=== PATIENT | female | born 1970 | race Caucasian/White ===

== ENCOUNTER 2017-04-14 13:06 | Inpatient (IN) | payer OTHER ==
[~2017-04-14] VITALS: Ht 165.1 cm; Wt 79.0 kg
[~2017-04-14 13:06] MED LIST: ALPR-411 PO; EFFSR75 PO; MELO7.5T5 PO; MULT-513 PO; VENL100T2 PO
[2017-04-14] MEDS ORDERED: SODIUM CHLORIDE 0.9% 1000ML 1,000 ML IV SCH (13:23)
[2017-04-14 13:39] LABS: HEMATOCRIT 43.5 % (37-47); MEAN CELL VOLUME 91.8 fL (80-100); MEAN CORPUSCULAR HEMOGLOBIN 31.6 pg (25-34); MEAN CORPUSCULAR HGB CONC 34.5 g/dl (32-36); MEAN PLATELET VOLUME 9.5 fL (7.4-10.4); PLATELET COUNT 405 K/uL (130-400); RED BLOOD COUNT 4.74 M/uL (4.2-5.4); WHITE BLOOD COUNT 15.96 K/uL (4.8-10.8)
[2017-04-14 13:46] LABS: PROTHROMBIN TIME (PATIENT) 10.4 SECONDS (9.0-12.0)
--- NOTE | 2017-04-14 14:02 | EMERGENCY ROOM VISIT NOTE ---
History Report prepared by Mc: Kia Lyon Under the Supervision of: Dr. Goran Palencia D.O. First contact with patient: 13:12 Chief Complaint: NEURO SYMPTOMS Stated Complaint: SPEECH DIFFICULTY-MS History of Present Illness The patient is a 46 year old female who presents to the Emergency Room with complaints of persistent speech difficulty starting 0800 today. She has a history of MS. She woke up at 0800 with difficulty finding her words. She normally does not have any speech problems with her MS. She does have right arm and leg weakness at baseline. She has a headache. She denies any chest pain or SOB. She was started on Provigil 2 weeks ago. She denies any other changes in medications. She is currently not on steroids. She is due for her period. She had an MRI 3 days ago with neurology. She has not received the results yet. Source of History: patient, sibling Onset: 0800 today Position: other (global) Quality: other (speech difficulty) Timing: other (persistent) Associated Symptoms: + headache, No chest pain, No SOB Review of Systems See HPI for pertinent positives & negatives. A total of 10 systems reviewed and were otherwise negative. Past Medical & Surgical Medical Problems: (1) Expressive aphasia (2) Melanoma (3) MS (multiple sclerosis) Family History No pertinent family history stated. Social History Smoking Status: Current Every Day Smoker Alcohol Use: occasionally Drug Use: cocaine Marital Status: Occupation Status: employed Current/Historical Medications Scheduled Glatiramer Acetate (Copaxone), 1 DOSE INJ UD Modafinil (Provigil), 1 TAB PO DAILY Multivitamins/Minerals (Mvi With Minerals), 1 TAB PO DAILY Venlafaxine Hcl (Effexor Extended Rel), 1 CAP PO DAILY Scheduled PRN Alprazolam (Xanax), 0.5 MG PO TID PRN Allergies Coded Allergies: No Known Allergies (Verified , 04/14/17) Physical Exam Vital Signs Date Time Temp Pulse Resp B/P (MAP) Pulse Ox O2 Delivery O2 Flow Rate FiO2 04/14/17 14:13 90 16 101/80 95 Room Air 04/14/17 14:11 98 Room Air 04/14/17 13:08 37.0 113 20 146/117 98 Room Air Physical Exam GENERAL: Patient is awake, alert, and in no acute distress. Patient is resting comfortably and showing no signs of anxiety EYES: The conjunctivae are clear. The pupils are round and reactive. EARS, NOSE, MOUTH AND THROAT: The nose is without any evidence of any deformity. Mucous membranes are moist tongue is midline NECK: The neck is nontender and supple. RESPIRATORY: Normal respiratory effort is noted there is no evidence of wheezing rhonchi or rales CARDIOVASCULAR: Regular rate and rhythm noted there no murmurs rubs or gallops normal S1 normal S2 GASTROINTESTINAL: The abdomen is soft. Bowel sounds are present in all quadrants. Abdomen is nontender MUSCULOSKELETAL/EXTREMITIES: There is no evidence of gross deformity full range of motion is noted in the hips and shoulders SKIN: There is no obvious evidence of any rash. There are no petechiae, pallor or cyanosis noted. NEUROLOGIC: Patient is awake alert and oriented x3. No facial droop was noted. Patellar reflexes are 3+ bilaterally. Tobacco Roller strength diminished in RUE compared to the left. Speech was pressure and difficult for the patient. Medical Decision & Procedures ER Provider Diagnostic Interpretation: X-ray results as stated below per interpretation by me and the radiologist. Radiology results as stated below per my review and radiologist interpretation: CHEST ONE VIEW PORTABLE HISTORY: 46 years-old Female Stroke acute strokelike symptoms COMPARISON: Chest radiograph 11/26/2015 TECHNIQUE: Portable upright AP view of the chest FINDINGS: Cardiomediastinal and hilar silhouettes are within normal limits. No pneumothorax, pleural effusion, focal airspace consolidation or overt pulmonary edema. Bones of the chest are grossly intact. IMPRESSION: No acute cardiopulmonary process. The above report was generated using voice recognition software. It may contain grammatical, syntax or spelling errors. Electronically signed by: Blanco Cruz M.D. 04/14/2017 2:45 PM Dictated Date/Time: 04/14/2017 2:44 PM HEAD WITHOUT CONTRAST (CT) CLINICAL HISTORY: 46 years-old Female with Stroke. Acute strokelike symptoms. Dysarthria with blurry vision and headache TECHNIQUE: Multiple axial CT images of the head were obtained without contrast. A dose lowering technique was utilized adhering to the principles of ALARA. CT DOSE: 537.48 mGy.cm COMPARISON: CT head 06/08/2015. FINDINGS: No acute intracranial hemorrhage, midline shift, mass, large territorial ischemia or abnormal extra-axial collection. The calvarium is intact. The paranasal sinuses, mastoid air cells, and middle ear cavities are clear. IMPRESSION: No acute intracranial abnormality. The above report was generated using voice recognition software. It may contain grammatical, syntax or spelling errors. Electronically signed by: Blanco Cruz M.D. 04/14/2017 2:09 PM Dictated Date/Time: 04/14/2017 2:07 PM Laboratory Results 04/14/17 13:19 Red Blood Count 4.74, Mean Corpuscular Volume 91.8, Mean Corpuscular Hemoglobin 31.6, Mean Corpuscular Hemoglobin Concent 34.5, Mean Platelet Volume 9.5, Neutrophils (%) (Auto) 80.0, Lymphocytes (%) (Auto) 13.3, Monocytes (%) (Auto) 5.2, Eosinophils (%) (Auto) 1.1, Basophils (%) (Auto) 0.2, Neutrophils # (Auto) 12.78, Lymphocytes # (Auto) 2.12, Monocytes # (Auto) 0.83, Eosinophils # (Auto) 0.17, Basophils # (Auto) 0.03 04/14/17 13:19 Test 04/14/17 13:19 04/14/17 14:10 White Blood Count 15.96 K/uL (4.8-10.8) Red Blood Count 4.74 M/uL (4.2-5.4) Hemoglobin 15.0 g/dL (12.0-16.0) Hematocrit 43.5 % (37-47) Mean Corpuscular Volume 91.8 fL (80-100) Mean Corpuscular Hemoglobin 31.6 pg (25-34) Mean Corpuscular Hemoglobin Concent 34.5 g/dl (32-36) Platelet Count 405 K/uL (130-400) Mean Platelet Volume 9.5 fL (7.4-10.4) Neutrophils (%) (Auto) 80.0 % Lymphocytes (%) (Auto) 13.3 % Monocytes (%) (Auto) 5.2 % Eosinophils (%) (Auto) 1.1 % Basophils (%) (Auto) 0.2 % Neutrophils # (Auto) 12.78 K/uL (1.4-6.5) Lymphocytes # (Auto) 2.12 K/uL (1.2-3.4) Monocytes # (Auto) 0.83 K/uL (0.11-0.59) Eosinophils # (Auto) 0.17 K/uL (0-0.5) Basophils # (Auto) 0.03 K/uL (0-0.2) RDW Standard Deviation 42.8 fL (36.4-46.3) RDW Coefficient of Variation 12.7 % (11.5-14.5) Immature Granulocyte % (Auto) 0.2 % Immature Granulocyte # (Auto) 0.03 K/uL (0.00-0.02) Prothrombin Time 10.4 SECONDS (9.0-12.0) Prothromb Time International Ratio 1.0 (0.9-1.1) Activated Partial Thromboplast Time 25.7 SECONDS (21.0-31.0) Partial Thromboplastin Ratio 1.0 Anion Gap 9.0 mmol/L (3-11) Est Creatinine Clear Calc Drug Dose 87.0 ml/min Estimated GFR () 95.9 Estimated GFR (Non- 82.8 BUN/Creatinine Ratio 13.8 (10-20) Calcium Level 8.9 mg/dl (8.5-10.1) Magnesium Level 1.8 mg/dl (1.8-2.4) Total Creatine Kinase 69 U/L (26-192) Creatine Kinase MB 1.1 ng/ml (0.5-3.6) Creatine Kinase MB Ratio 1.6 (0-3.0) Troponin I < 0.015 ng/ml (0-0.045) Human Chorionic Gonadotropin, Qual NEG (NEG) Bedside Glucose 88 mg/dl (70-90) Laboratory results per my review. ECG Indication: weakness Rate (beats per minute): 93 Rhythm: normal sinus Findings: no ectopy, other (no acute ST segment abnormality, diffuse T wave flattening) Comparison ECG Date: 08-Jun-2015 Change: no significant change ED Course 1320: The patient was evaluated in room A11B. A complete history and physical examination were performed. 1323: NSS 1000 ml @ 50 mls/hr IV. 1448: I discussed the patient's case with Dr. Busby, [facility] neurology. We are in agreement with the plan. 1510: Upon reevaluation, the patient is stable. I discussed results and treatment plan with her. She verbalizes agreement and understanding. The patient will be evaluated for further management and care. 1514: I discussed the [facility]'s [facility] The patient will be evaluated for further management. Medical Decision Prior records/ancillary studies reviewed and summarized above. Nursing notes reviewed. Additional history obtained from family. The patient's history was concerning for speech difficulties. Differential diagnosis: Etiologies such as metabolic, infection, hypo/hyperglycemia, electrolyte abnormalities, cardiac sources, intracerebral event, toxicologic, neurologic, as well as others were entertained. The patient is a 46-year-old female who presented to the emergency department for evaluation of difficulty speaking as well as right-sided weakness and numbness. The patient states that she's had similar episodes in the past with an MS flare. The patient was outside of the window for TPA and given her presentation I'm unsure if she would be a candidate for thrombolytics. I discussed the patient's laboratory radiographic studies with her. I also discussed her case with her primary neurologist. At this time he is recommended that we discussed the case with the admitting team and do further testing to ensure this was not an ischemic event but also do an MRI to ensure that this is not a flare of MS and then determine therapy based on these findings. The patient was reevaluated multiple times. I discussed the patient's laboratory radiographic studies with her. [facility] also [facility] evaluate the patient in emergency apartment for further management and disposition. Medication Reconcilliation Current Medication List: was personally reviewed by me Blood Pressure Screening Patient's blood pressure: Normal blood pressure Blood pressure disposition: Did not require urgent referral Consults Time Called: 1442 Consulting Physician: Izaiah Chapman neurology Returned Call: [phone] I discussed the patient's case with him. We are in agreement with the plan. Additional Consults: Time Called: 1510 Consulted Phys[facility] Returned Call: [phone] Additional Comments: I discussed the patient's case with him. The patient will be evaluated for further management. Impression Primary Impression: Weakness Additional Impressions: MS (multiple sclerosis) Headache Scribe Attestation The scribe's documentation has been prepared under my direction and personally reviewed by me in its entirety. I confirm that the note above accurately reflects all work, treatment, procedures, and medical decision making performed by me. Departure Information Dispostion Being Evaluated By Hospitalist Referrals Jass Cox M.D.(ALANNAH) (PCP) Patient Instructions My [facility] Problem Qualifiers Additional Impressions: Headache Headache type: unspecified Headache chronicity pattern: unspecified pattern Intractability: not intractable Qualified Codes: R51 - Headache
[2017-04-14 14:03] LABS: PREG INTERNAL NEGATIVE QC NEG CLEAR BACKGROUND; PREG INTERNAL POSITIVE QC POS CONTROL LINE
[2017-04-14 14:04] LABS: BLOOD UREA NITROGEN 12 mg/dl (7-18); BUN/CREATININE RATIO 13.8 (10-20); CALCIUM 8.9 mg/dl (8.5-10.1); CARBON DIOXIDE 26 mmol/L (21-32); CHLORIDE 105 mmol/L (98-107); CREATININE 0.84 mg/dl (0.60-1.20); GLUCOSE 94 mg/dl (70-99); MAGNESIUM 1.8 mg/dl (1.8-2.4); POTASSIUM 3.6 mmol/L (3.5-5.1); SODIUM 140 mmol/L (136-145)
[2017-04-14 14:09] LABS: BASO % 0.2 %; BASO ABS # 0.03 K/uL (0-0.2); CKMB/CK RATIO 1.6 (0-3.0); COMPLETE YES; EOS % 1.1 %; IG% 0.2 %; LYMPH % 13.3 %; LYMPH ABS # 2.12 K/uL (1.2-3.4); MONO % 5.2 %
--- NOTE | 2017-04-14 14:11 | DIAGNOSTIC IMAGING REPORT ---
HEAD WITHOUT CONTRAST (CT) CLINICAL HISTORY: 46 years-old Female with Stroke. Acute strokelike symptoms. Dysarthria with blurry vision and headache TECHNIQUE: Multiple axial CT images of the head were obtained without contrast. A dose lowering technique was utilized adhering to the principles of ALARA. CT DOSE: 537.48 mGy.cm COMPARISON: CT head 06/08/2015. FINDINGS: No acute intracranial hemorrhage, midline shift, mass, large territorial ischemia or abnormal extra-axial collection. The calvarium is intact. The paranasal sinuses, mastoid air cells, and middle ear cavities are clear. IMPRESSION: No acute intracranial abnormality. The above report was generated using voice recognition software. It may contain grammatical, syntax or spelling errors. Electronically signed by: Blanco Cruz M.D. 04/14/2017 2:09 PM Dictated Date/Time: 04/14/2017 2:07 PM
[2017-04-14] MEDS ORDERED: GLAT1INJ INJ (14:34)
[2017-04-14] MEDS ORDERED: EFFSR150 PO (14:34)
[2017-04-14] MEDS ORDERED: MODA200T42 PO (14:34)
--- NOTE | 2017-04-14 14:46 | DIAGNOSTIC IMAGING REPORT ---
CHEST ONE VIEW PORTABLE HISTORY: 46 years-old Female Stroke acute strokelike symptoms COMPARISON: Chest radiograph 11/26/2015 TECHNIQUE: Portable upright AP view of the chest FINDINGS: Cardiomediastinal and hilar silhouettes are within normal limits. No pneumothorax, pleural effusion, focal airspace consolidation or overt pulmonary edema. Bones of the chest are grossly intact. IMPRESSION: No acute cardiopulmonary process. The above report was generated using voice recognition software. It may contain grammatical, syntax or spelling errors. Electronically signed by: Blanco Cruz M.D. 04/14/2017 2:45 PM Dictated Date/Time: 04/14/2017 2:44 PM
[2017-04-14] MEDS ORDERED: ASPIRIN 325 MG ECTAB PO ONE (15:45)
[2017-04-14] MEDS ORDERED: ACETAMINOPHEN 325 MG TAB PO PRN (15:45)
[2017-04-14] MEDS ORDERED: ALPRAZOLAM 0.5 MG TAB PO PRN (15:45)
[2017-04-14 16:20] VITALS: BP 127/75; PULSE 91; TEMP 37.1; O2SAT 97
--- NOTE | 2017-04-14 16:46 | History and Physical ---
History & Physical Date & Time of Service: Apr 14, 2017 at 16:17 Chief Complaint: Speech Difficulty-Ms Primary Care Physician: Jass Cox M.D.(ALANNAH) History of Present Illness Source: patient, family, clinic records This is a 46 year old female with a PMH of multiple sclerosis, depression presents with expressive aphasia; she states she was in her usual state of health until she woke up and could not get any words out. She also had a headache and R eye visual trouble - she states that the visual trouble is intermittent due to her MS, but the headache and expressive aphasia are new symptoms. She was seen by her primary care last week and was started on Provigil due to weakness secondary to MS. At that time, she had an MRI done, but this was not read as of today (04/14/17). Currently, she is writing for communication. Past Medical/Surgical History Medical Problems: (1) Melanoma Status: Resolved (2) MS (multiple sclerosis) Status: Chronic Social History Smoking Status: Current Every Day Smoker Drug Use: cocaine Marital Status: Housing status: lives with family Occupational Status: employed Immunizations History of Influenza Vaccine: Unknown History of Tetanus Vaccine?: No Multi-Drug Resistant Organisms History of MDRO: No Allergies Coded Allergies: No Known Allergies (Verified , 04/14/17) Home Medications Scheduled Glatiramer Acetate (Copaxone), 1 DOSE INJ UD Modafinil (Provigil), 1 TAB PO DAILY Multivitamins/Minerals (Mvi With Minerals), 1 TAB PO DAILY Venlafaxine Hcl (Effexor Extended Rel), 1 CAP PO DAILY Scheduled PRN Alprazolam (Xanax), 0.5 MG PO TID PRN Review of Systems Constitutional: No fever, No chills, No sweats, No weight loss, No weakness, No fatigue Eyes: + worsening of vision (intermittent, chronically), No eye pain ENT: + problem reported (headache), No hearing loss, No unusual epistaxis, No nasal symptoms, No sore throat, No tinnitus, No dental problems, No trouble swallowing Respiratory: No cough, No sputum, No wheezing, No shortness of breath, No dyspnea on exertion, No dyspnea at rest, No hemoptysis Cardiovascular: No chest pain, No orthopnea, No edema, No palpitations Abdomen: No pain, No nausea, No vomiting, No diarrhea, No constipation Musculoskeletal: No joint pain, No muscle pain, No swelling, No calf pain, No problem reported Genitourinary - Female: No dysuria, No urinary frequency, No urinary urgency, No urinary incontinence, No urinary retention, No hematuria Neurologic: + problem reported (+aphasia), No memory loss, No paralysis, No weakness, No numbness/tingling, No vertigo, No balance problems Psychiatric: No depression symptoms, No anxiety, No insomnia, No substance abuse Endocrine: No fatigue, No excessive thirst Hematologic / Lymphatic: No abnormal bleeding/bruising Integumentary: No rash, No itch Allergic / Immunologic: No environmental allergies, No seasonal allergies Physical Exam Vital Signs Date Time Temp Pulse Resp B/P (MAP) Pulse Ox O2 Delivery O2 Flow Rate FiO2 04/14/17 15:41 88 18 123/87 97 Room Air 04/14/17 14:13 90 16 101/80 95 Room Air 04/14/17 14:11 98 Room Air 04/14/17 13:08 37.0 113 20 146/117 98 Room Air General Appearance: no apparent distress Head: normocephalic, atraumatic Eyes: normal inspection ENT: hearing grossly normal Neck: supple Respiratory/Chest: chest non-tender, lungs clear, normal breath sounds, no respiratory distress, no accessory muscle use Cardiovascular: regular rate, rhythm, no edema, no murmur Abdomen/GI: normal bowel sounds, non tender, soft Extremities/Musculoskelatal: normal inspection, no calf tenderness, normal capillary refill, no pedal edema, normal range of motion 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, no motor/sensory deficits, alert, oriented x 3, + aphasia Skin: normal color Lymphatic: no adenopathy Diagnostics Laboratory Results Results Past 24 Hours Test 04/14/17 13:19 Range/Units White Blood Count 15.96 4.8-10.8 K/uL Red Blood Count 4.74 4.2-5.4 M/uL Hemoglobin 15.0 12.0-16.0 g/dL Hematocrit 43.5 37-47 % Mean Corpuscular Volume 91.8 80-100 fL Mean Corpuscular Hemoglobin 31.6 25-34 pg Mean Corpuscular Hemoglobin Concent 34.5 32-36 g/dl Platelet Count 405 130-400 K/uL Mean Platelet Volume 9.5 7.4-10.4 fL Neutrophils (%) (Auto) 80.0 % Lymphocytes (%) (Auto) 13.3 % Monocytes (%) (Auto) 5.2 % Eosinophils (%) (Auto) 1.1 % Basophils (%) (Auto) 0.2 % Neutrophils # (Auto) 12.78 1.4-6.5 K/uL Lymphocytes # (Auto) 2.12 1.2-3.4 K/uL Monocytes # (Auto) 0.83 0.11-0.59 K/uL Eosinophils # (Auto) 0.17 0-0.5 K/uL Basophils # (Auto) 0.03 0-0.2 K/uL RDW Standard Deviation 42.8 36.4-46.3 fL RDW Coefficient of Variation 12.7 11.5-14.5 % Immature Granulocyte % (Auto) 0.2 % Immature Granulocyte # (Auto) 0.03 0.00-0.02 K/uL Prothrombin Time 10.4 9.0-12.0 SECONDS Prothromb Time International Ratio 1.0 0.9-1.1 Activated Partial Thromboplast Time 25.7 21.0-31.0 SECONDS Partial Thromboplastin Ratio 1.0 Sodium Level 140 136-145 mmol/L Potassium Level 3.6 3.5-5.1 mmol/L Chloride Level 105 98-107 mmol/L Carbon Dioxide Level 26 21-32 mmol/L Anion Gap 9.0 3-11 mmol/L Blood Urea Nitrogen 12 7-18 mg/dl Creatinine 0.84 0.60-1.20 mg/dl Est Creatinine Clear Calc Drug Dose 87.0 ml/min Estimated GFR () 95.9 Estimated GFR (Non- 82.8 BUN/Creatinine Ratio 13.8 10-20 Random Glucose 94 70-99 mg/dl Calcium Level 8.9 8.5-10.1 mg/dl Magnesium Level 1.8 1.8-2.4 mg/dl Total Creatine Kinase 69 26-192 U/L Creatine Kinase MB 1.1 0.5-3.6 ng/ml Creatine Kinase MB Ratio 1.6 0-3.0 Troponin I < 0.015 0-0.045 ng/ml Human Chorionic Gonadotropin, Qual NEG NEG Diagnostic Radiology HEAD WITHOUT CONTRAST (CT) CLINICAL HISTORY: 46 years-old Female with Stroke. Acute strokelike symptoms. Dysarthria with blurry vision and headache TECHNIQUE: Multiple axial CT images of the head were obtained without contrast. A dose lowering technique was utilized adhering to the principles of ALARA. CT DOSE: 537.48 mGy.cm COMPARISON: CT head 06/08/2015. FINDINGS: No acute intracranial hemorrhage, midline shift, mass, large territorial ischemia or abnormal extra-axial collection. The calvarium is intact. The paranasal sinuses, mastoid air cells, and middle ear cavities are clear. IMPRESSION: No acute intracranial abnormality. CHEST ONE VIEW PORTABLE HISTORY: 46 years-old Female Stroke acute strokelike symptoms COMPARISON: Chest radiograph 11/26/2015 TECHNIQUE: Portable upright AP view of the chest FINDINGS: Cardiomediastinal and hilar silhouettes are within normal limits. No pneumothorax, pleural effusion, focal airspace consolidation or overt pulmonary edema. Bones of the chest are grossly intact. IMPRESSION: No acute cardiopulmonary process. EKG Normal sinus rhythm Low voltage QRS Nonspecific T wave abnormality Abnormal ECG Impression Assessment and Plan This is a 46 year old female with a PMH of multiple sclerosis, depression presents with expressive aphasia Expressive Aphasia r/o CVA Head CT negative for acute process will check MRI, MRA of head/neck as per neurology if stroke ruled out, may need IV steroids for possible MS exacerbation speech therapy consulted given full dose aspirin x1 MS will hold provigil check MRI head combo for MS consulted neurology hold off on steroids for now Depression continue home medications DVT ppx Lovenox FULL CODE VTE Prophylaxis VTE Risk Assessment Done? Y/N: Yes Risk Level: Moderate
[2017-04-14 17:09] VITALS: PULSE 95; O2SAT 97
[2017-04-14 17:15] VITALS: BP 127/75; PULSE 95; TEMP 37.1; O2SAT 97; Ht 165.1 cm; Wt 79.0 kg
[2017-04-14] MEDS: SODIUM CHLORIDE 0.9% 1000ML 1,000 ML IV SCH (19:09)
[2017-04-14 19:21] VITALS: BP 132/78; PULSE 99; TEMP 36.9; O2SAT 96
[2017-04-14 19:35] LABS: URINE APPEARANCE CLEAR (CLEAR); URINE BILIRUBIN NEG (NEG); URINE COLOR YELLOW; URINE NITRITE NEG (NEG); URINE SPECIFIC GRAVITY 1.024 (1.000-1.030); UROBILINOGEN NEG (NEG); ZZUR CULT IF INDIC CLEAN CATCH NO
[2017-04-14 19:46] LABS: MANUAL MICROSCOPIC REQUIRED? NO; REVIEW REQ? NO
[2017-04-14] MEDS ORDERED: ENOXAPARIN 40 MG/0.4 ML SYR SC SCH (21:00)
[2017-04-14] MEDS: ONDANSETRON INJ 2 MG/ML 2 ML VIAL IV PRN (23:08)
[2017-04-15] VITALS (7 sets, daily range): BP systolic 106–120; BP diastolic 65–77; PULSE 83–94; TEMP 36.7–37.3; O2SAT 95–96
[2017-04-15] MEDS ORDERED: GADAVIST IV PRN (01:30)
--- NOTE | 2017-04-15 06:37 | DIAGNOSTIC IMAGING REPORT ---
MR ANGIOGRAPHY OF THE [place] NO CONTRAST CLINICAL HISTORY: Stroke like symptoms. Dysarthria, blurred vision, headache. COMPARISON STUDY: Noncontrast head CT dated 04/14/2017 A 3-D [id number] MR angiographic sequence of the [place] was performed. Both the source and projection images were reviewed. There is no evidence of major intracranial branch occlusion. There is no evidence of intracranial stenosis. There are no lesions suspicious for aneurysm. IMPRESSION: Unremarkable MR angiography of the [place]. Electronically signed by: Earle Carver M.D. 04/15/2017 6:36 AM Dictated Date/Time: 04/15/2017 6:34 AM
[2017-04-15 06:48] LABS: HEMATOCRIT 37.5 % (37-47); MEAN CELL VOLUME 91.5 fL (80-100); MEAN CORPUSCULAR HEMOGLOBIN 31.2 pg (25-34); MEAN CORPUSCULAR HGB CONC 34.1 g/dl (32-36); MEAN PLATELET VOLUME 9.6 fL (7.4-10.4); PLATELET COUNT 330 K/uL (130-400); WHITE BLOOD COUNT 6.84 K/uL (4.8-10.8)
--- NOTE | 2017-04-15 06:59 | DIAGNOSTIC IMAGING REPORT ---
MRA NECK COMBO CLINICAL HISTORY: 46 years-old Female presenting with history of melanoma, unable to talk, right-sided weakness, no prior stroke, history of MS diagnosed in 2013. TECHNIQUE: MR angiography of the neck was performed before and after the administration of intravenous contrast. 3-D volumetric and/or maximum intensity projection (MIP) images were subsequently reconstructed for review. IV contrast: 8 mL of Gadavist. Stenosis measurements were based on NASCET-like criteria. COMPARISON: None. FINDINGS: Three-vessel aortic arch with patent origins of the branch vessels. Bilateral common and internal carotid arteries patent. Codominant vertebral arteries with patent origins and courses. No significant stenosis, occlusion, or dissection evident. Limited evaluation of the intracranial vasculature within normal limits. Patent cervical veins. IMPRESSION: 1. No significant stenosis, focal vessel occlusion, or dissection. Electronically signed by: Malvin Rodríguez M.D. 04/15/2017 6:57 AM Dictated Date/Time: 04/15/2017 6:53 AM
[2017-04-15 07:22] LABS: BUN/CREATININE RATIO 12.4 (10-20); CALCIUM 8.2 mg/dl (8.5-10.1); CREATININE 0.82 mg/dl (0.60-1.20); POTASSIUM 4.2 mmol/L (3.5-5.1)
[2017-04-15 07:23] LABS: CHOLESTEROL/HDL RATIO 3.8
--- NOTE | 2017-04-15 07:23 | DIAGNOSTIC IMAGING REPORT ---
Brain MRI WITH AND WITHOUT CONTRAST HISTORY: Headaches. Blurry vision. hx. of MS; now r/o CVA TECHNIQUE: Multiplanar multisequence MRI of the brain was performed both before and after the intravenous administration of contrast. COMPARISON STUDY: Head CT 04/14/2017. FINDINGS: There are no areas of restricted diffusion to suggest acute infarction. The midline structures are intact. The paranasal sinuses are clear. The mastoid air cells are clear. The ventricles and sulci are within normal limits for age. There is no mass, hematoma, midline shift. The major vascular flow-voids at the skull base are well maintained. A few scattered foci of nonspecific T2 hyperintensity seen within the periventricular and subcortical white matter. Dominant lesion within the left temporal lobe measures 11 mm. Punctate focus of enhancement within the right parietal lobe. IMPRESSION: 1. Scattered signal abnormality within the subcortical and periventricular white matter consistent with the patient's history of multiple sclerosis. 2. Small focus of enhancement within the right parietal lobe likely representing active demyelination. Electronically signed by: Christiano Marshall M.D. 04/15/2017 7:21 AM Dictated Date/Time: 04/15/2017 7:17 AM
[2017-04-15] MEDS: SODIUM CHLORIDE 0.9% 1000ML 1,000 ML IV SCH ×2 (08:48→16:32)
[2017-04-15] MEDS ORDERED: CEROVITE ADV FORMULA TAB PO SCH (09:00)
[2017-04-15] MEDS ORDERED: ASPIRIN 81 MG ECTAB PO SCH (09:00)
[2017-04-15] MEDS ORDERED: VENLAFAXINE HCL XR 150 MG CAPXR PO SCH (09:00)
--- NOTE | 2017-04-15 11:56 | ECHOCARDIOGRAM REPORT ---
*NOTICE TO RECEIVING [facility] This information is strictly Confidential and protected under [place] law. [place] law prohibits you from making any further disclosure of this information unless further disclosure is expressly permitted by the written consent of the person to whom it pertains or is authorized by law. A general authorization for the release of medical or other information is not sufficient for this purpose. Hospital accepts no responsibility if the information is made available to any other person, INCLUDING THE PATIENT. Interpretation Summary * Name: VÍCTOR ZHANG Study Date: 04/15/2017 07:26 AM BP: 111/70 mmHg * Patient Location: C.2T\S\E222\S\1 HR: 94 * : 1970 (M/d/yyyy) Gender: Female Height: 65 in * Age: 46 yrs Ethnicity: CA Weight: 178 lb * Ordering Physician: Nolan Owens * Referring Physician: Self, Referred * Performed By: Starr Patton RDCS * * Reason For Study: STROKE LIKE SYMPTOMS * BSA: 1.9 m2 * -- Conclusions -- * Normal LV chamber size and wall thickness. * Normal LV systolic function, EF 60-65%. * No segmental left ventricular wall motion abnormalities are noted. * Normal diastolic function. * No significant valvular pathology. * The interatrial septum is intact with no evidence for an atrial septal defect. * Injection of contrast documented no interatrial shunt. Procedure Details * A saline contrast injection was performed to assess for cardiac shunting. * The injection was performed through an intravenous line in the right arm. * The attending nurse who injected the saline contrast was RINKU STERN RN. * A total of 20 cc of agitated saline was given. Left Ventricle * The left ventricle is normal in size. * There is mild concentric left ventricular hypertrophy. * Ejection Fraction = 60-65%. * Left ventricular systolic function is normal. * No segmental left ventricular wall motion abnormalities are noted. * The left ventricular wall motion is normal. Right Ventricle * The right ventricular cavity size is normal (basal dimension <4.2 cm in right ventricular apical 4-chamber view). * The right ventricular systolic function is normal as assessed by tricuspid annular plane systolic excursion (TAPSE) (normal >1.5 cm). Atria * The left atrial size is normal. * Right atrial size is normal. * The interatrial septum is intact with no evidence for an atrial septal defect. * Injection of contrast documented no interatrial shunt. Mitral Valve * The mitral valve is normal in structure and function. Tricuspid Valve * The tricuspid valve is normal in structure and function. Aortic Valve * The aortic valve is normal in structure and function. Pulmonic Valve * The pulmonary valve is not well seen, but the Doppler examination is normal without significant regurgitation or stenosis. Great Vessels * The aortic root is normal size. Pericardium/Pleural * There is no pericardial effusion. Left Ventricular Diastolic Function * Pulse wave TDI of the anterior and posterior mitral annulas demonstrates normal LV relaxation MMode 2D Measurements and Calculations IVSd 1.1 cm IVSs 1.5 cm LVIDd 3.9 cm LVIDs 2.6 cm LVPWd 0.84 cm LVPWs 1.3 cm IVS/LVPW 1.4 FS 32.6 % EDV(Teich) 65.1 ml ESV(Teich) 24.9 ml EF(Teich) 61.7 % EDV(cubed) 58.4 ml ESV(cubed) 17.8 ml EF(cubed) 69.4 % % IVS thick 27.5 % % LVPW thick 59.4 % LV mass(C)d 119.0 grams LV mass(C)dI 63.2 grams/m\S\2 LV mass(C)s 116.6 grams LV mass(C)sI 61.9 grams/m\S\2 SV(Teich) 40.1 ml SI(Teich) 21.3 ml/m\S\2 SV(cubed) 40.5 ml SI(cubed) 21.5 ml/m\S\2 Ao root diam 3.1 cm Ao root area 7.3 cm\S\2 LA dimension 2.8 cm LA/Ao 0.93 LVAd ap4 24.6 cm\S\2 LVLd ap4 8.0 cm EDV(MOD-sp4) 63.4 ml EDV(sp4-el) 64.1 ml LVAs ap4 13.3 cm\S\2 LVLs ap4 6.6 cm ESV(MOD-sp4) 24.6 ml ESV(sp4-el) 22.7 ml EF(MOD-sp4) 61.1 % EF(sp4-el) 64.5 % LVAd ap2 23.1 cm\S\2 LVLd ap2 8.0 cm EDV(MOD-sp2) 56.9 ml EDV(sp2-el) 56.7 ml LVAs ap2 12.5 cm\S\2 LVLs ap2 6.6 cm ESV(MOD-sp2) 21.3 ml ESV(sp2-el) 20.2 ml EF(MOD-sp2) 62.6 % EF(sp2-el) 64.3 % LVLd %diff -0.39 % EDV(MOD-bp) 60.0 ml LVLs %diff -0.26 % ESV(MOD-bp) 22.9 ml EF(MOD-bp) 61.8 % SV(MOD-sp4) 38.8 ml SI(MOD-sp4) 20.6 ml/m\S\2 SV(MOD-sp2) 35.6 ml SI(MOD-sp2) 18.9 ml/m\S\2 SV(MOD-bp) 37.1 ml SI(MOD-bp) 19.7 ml/m\S\2 SV(sp4-el) 41.3 ml SI(sp4-el) 22.0 ml/m\S\2 SV(sp2-el) 36.5 ml SI(sp2-el) 19.4 ml/m\S\2 Doppler Measurements and Calculations MV E max sajan 65.5 cm/sec MV A max sajan 56.8 cm/sec MV E/A 1.2 MV dec time 0.25 sec Ao V2 max 110.3 cm/sec Ao max PG 4.9 mmHg Ao max PG (full) 0.40 mmHg LV V1 max PG 4.5 mmHg LV V1 max 105.7 cm/sec TR max sajan 188.9 cm/sec
--- NOTE | 2017-04-15 13:40 | Neurology Consultation ---
Neurology Consultation Date of Consultation: Apr 15, 2017. Attending Physician: Junior Canales M.D. Primary Care Physician: Jass Cox M.D.(ALANNAH) Reason for Consultation: MS and expressive aphasia History of Present Illness Source: patient Carrie is a 46 year old female with a PMH of multiple sclerosis, depression who presents with a 1 day history of expressive aphasia. She woke up and could not get any words out. She also had a headache and R eye visual trouble with she has had intermittent since being diagnosed with MS. The headache and expressive aphasia are new symptoms. She was seen by her primary care last week and was started on Provigil due to weakness secondary to MS. MR brain was done in the [facility] system. denies CP, SOB, abdominal pain, falls, new bowel or bladder issues, N, V, swallowing difficulty. She was taking Copaxone as an out patient but it was causing diarrhea and it was stopped. Past Medical/Surgical History Medical Problems: (1) Headache Status: Acute (2) Left facial numbness Status: Acute (3) MS (multiple sclerosis) Status: Acute (4) MS (multiple sclerosis) Status: Chronic (5) Weakness Status: Acute Social History Smoking Status: Current every day smoker Drug Use: cocaine Marital Status: Occupation Status: employed Allergies Coded Allergies: No Known Allergies (Verified , 04/14/17) Current Inpatient Medications Current Inpatient Medications Medications (Trade) Dose Ordered Sig/Selvin Route Start Time Stop Time Status Last Admin Dose Admin Ondansetron HCl (Zofran Inj) 4 mg Q4H PRN IV 04/14/17 15:45 05/14/17 15:44 04/14/17 23:08 4 MG Enoxaparin Sodium (Lovenox Inj) 40 mg Q24H SC 04/14/17 21:00 05/14/17 20:59 04/14/17 20:42 40 MG Sodium Chloride 1,000 ml @ 80 mls/hr [id number] IV 04/14/17 15:32 05/14/17 15:31 04/15/17 08:48 80 MLS/HR Acetaminophen (Tylenol Tab) 650 mg Q4H PRN PO 04/14/17 15:45 05/14/17 15:44 Alprazolam (Xanax Tab) 0.5 mg TID PRN PO 04/14/17 15:45 05/14/17 15:44 Multivitamins/ Minerals (Multivitamin W/ Minerals Tab) 1 tab DAILY PO 04/15/17 09:00 05/15/17 08:59 04/15/17 08:47 1 TAB Venlafaxine HCl (effeXOR EXTENDED REL CAP) 150 mg DAILY PO 04/15/17 09:00 05/15/17 08:59 04/15/17 08:47 150 MG Aspirin (Ecotrin Tab) 81 mg QAM PO 04/15/17 09:00 05/15/17 08:59 04/15/17 08:47 81 MG Gadobutrol (Gadavist) 8 mmol UD PRN IV 04/15/17 01:30 04/19/17 01:29 Physical Exam Vital Signs (Past 24 Hrs): Date Time Temp Pulse Resp B/P (MAP) Pulse Ox O2 Delivery O2 Flow Rate FiO2 04/15/17 12:08 37.3 92 16 120/77 (91) 96 Room Air 04/15/17 09:00 Room Air 04/15/17 07:53 36.7 94 16 111/70 (84) 95 Room Air 04/15/17 04:00 Room Air 04/15/17 03:54 37.0 92 19 106/65 (79) 96 Room Air 04/15/17 00:19 36.8 91 20 113/74 (87) 96 Room Air 04/14/17 23:59 Room Air 04/14/17 20:00 Room Air 04/14/17 19:21 36.9 99 18 132/78 (96) 96 Room Air 04/14/17 17:15 37.1 95 18 127/75 97 Room Air 04/14/17 17:09 95 18 97 Room Air 04/14/17 16:20 37.1 91 18 127/75 (92) 97 Room Air 04/14/17 15:41 88 18 123/87 97 Room Air 04/14/17 14:13 90 16 101/80 95 Room Air 04/14/17 14:11 98 Room Air Physical Exam: Constitutional: appearance nourished, healthy and normal Ears, Nose, Mouth and Throat: mucous membranes moist, no injection and skin normal, eyes normal Cardiovascular: normal S-1 and S-2 and regular rate and rhythm Respiratory: clear to auscultation (CTA) and no rales, rhonchi or wheeze Musculoskeletal: no peripheral edema and good distal pulses Skin: no stigmata of neurocutaneous disease noted and normal and intact Eyes: extraocular muscles intact (EOMI) and pupils equal, round and reactive to light (PERRL) NEUROLOGIC EXAMINATION: Mental status: Alert and interactive Oriented to full date and location Oriented to person Speech some hesitance with say words, can say no ifs ands or buts, knows [facility], 2017 [place], sticks out tongue, closes eyes points to ceiling with left hand Cranial Nerves smile eye brow raise, symmetric tongue midline Reflexes: Deep tendon reflexes were symmetrical left, hyperreflexic right patellar Sensory: light touch Coordination: Romberg with eye closed Gait/Stance: Posture normal. Gait normal: with steady with steps, base, turning, heel and toe walking and tandem gait. Motor: Negative for pronator drift of out stretched arms with eyes closed. 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 biceps triceps deltoids 4/5, left- hip flex 4/5, plantar flex ext 5/5, right hand multiple resaw operator biceps triceps deltoids, 5/5 , hip flex plantar flex ext 5/5 Laboratory Results Past 24 Hours: 04/15/17 06:12 04/15/17 06:12 Test 04/14/17 13:19 04/14/17 14:10 04/15/17 06:12 Immature Granulocyte % (Auto) 0.2 % White Blood Count 15.96 K/uL (4.8-10.8) Red Blood Count 4.74 M/uL (4.2-5.4) 4.10 M/uL (4.2-5.4) Hemoglobin 15.0 g/dL (12.0-16.0) Hematocrit 43.5 % (37-47) Mean Corpuscular Volume 91.8 fL (80-100) 91.5 fL (80-100) Mean Corpuscular Hemoglobin 31.6 pg (25-34) 31.2 pg (25-34) Mean Corpuscular Hemoglobin Concent 34.5 g/dl (32-36) 34.1 g/dl (32-36) Platelet Count 405 K/uL (130-400) Mean Platelet Volume 9.5 fL (7.4-10.4) 9.6 fL (7.4-10.4) Neutrophils (%) (Auto) 80.0 % Lymphocytes (%) (Auto) 13.3 % Monocytes (%) (Auto) 5.2 % Eosinophils (%) (Auto) 1.1 % Basophils (%) (Auto) 0.2 % Neutrophils # (Auto) 12.78 K/uL (1.4-6.5) Lymphocytes # (Auto) 2.12 K/uL (1.2-3.4) Monocytes # (Auto) 0.83 K/uL (0.11-0.59) Eosinophils # (Auto) 0.17 K/uL (0-0.5) Basophils # (Auto) 0.03 K/uL (0-0.2) Immature Granulocyte # (Auto) 0.03 K/uL (0.00-0.02) Prothrombin Time 10.4 SECONDS (9.0-12.0) Prothromb Time International Ratio 1.0 (0.9-1.1) Activated Partial Thromboplast Time 25.7 SECONDS (21.0-31.0) Partial Thromboplastin Ratio 1.0 Magnesium Level 1.8 mg/dl (1.8-2.4) Total Creatine Kinase 69 U/L (26-192) Creatine Kinase MB 1.1 ng/ml (0.5-3.6) Creatine Kinase MB Ratio 1.6 (0-3.0) Troponin I < 0.015 ng/ml (0-0.045) Human Chorionic Gonadotropin, Qual NEG (NEG) Bedside Glucose 88 mg/dl (70-90) RDW Standard Deviation 43.1 fL (36.4-46.3) RDW Coefficient of Variation 12.8 % (11.5-14.5) Anion Gap 9.0 mmol/L (3-11) Est Creatinine Clear Calc Drug Dose 88.1 ml/min Estimated GFR () 98.8 Estimated GFR (Non- 85.2 BUN/Creatinine Ratio 12.4 (10-20) Calcium Level 8.2 mg/dl (8.5-10.1) Triglycerides Level 118 mg/dl (0-150) Cholesterol Level 145 mg/dl (0-200) HDL Cholesterol 38 mg/dl LDL Cholesterol, Calculated 83 mg/dl VLDL Cholesterol, Calculated 24 mg/dl Cholesterol/HDL Ratio 3.8 Imaging MRI brain with and without Scattered signal abnormality within the subcortical and periventricular white matter consistent with the patient's history of multiple sclerosis. Small focus of enhancement within the right parietal lobe likely representing active demyelination. MRA brain Unremarkable MR angiography of the [facility]. MRA neck - no significant stenosis, focal vessel occlusion, or dissection. TTE Normal LV chamber size and wall thickness. * Normal LV systolic function, EF 60-65%. * No segmental left ventricular wall motion abnormalities are noted. * Normal diastolic function. * No significant valvular pathology. * The interatrial septum is intact with no evidence for an atrial septal defect. * Injection of contrast documented no interatrial shunt. Impression 46 year old female hx MS with new onset expressive aphasia-resolving Plan 1. aphasia resolving 2. no visual issues at this time- ophthalmology exam was unremarkable per patient 3. MRI combo of c spine and t spine to see if there are any new enhancing lesions. previous 1 lesion in c spine 2 lesions in t spine 4. KELLI virus was negative as outpatient once imaging is done will start new medication for MS 5. poor compliance in the past with Copaxone will need discussion as out patient which medication to start 6. further recommendations to follow once MRIs completed 7. MRI brain -possible new lesions MRA head neck -no vascular abnormalities 8. MRI brain [facility] system new 5 mm enhancement lesion R subcortical parietal lobe and new 4 mm non enhancing L brachium pontis other lesions have remained stable. I have seen and discussed above patient with Dr Junior Busby, neurology I have sen this patient today as she was going into the mri and have reviewed the above notes, the outpatient imaging studies my recent outpatient note and the current labs and studies She has ms and migraines with generally a right visual aura and is now admitted for same with and additionsl aphasia that has largely resolved, exam show th chronic right sided weakness and brisk dtrs with minimal speech hesitancy and imaging shows only the enhancing small plaque in the right heimisphere that would not explain her current symptoms which I feel are migrainous. She is to have spinal imaging done and if no significant findings emerge can be discharged with outpatient follow up as arranged for may 02 We will need to discusss future ms management as she had been poorly compliant with the copaxone She and i have already discussed options and we will need to reexplore them Plan then is for her to be discharged after the mri, to take a single baby asa a day and to stop the provigil which might have precipitated a migrainous event Junior Busby MD
[2017-04-15] MEDS: ONDANSETRON INJ 2 MG/ML 2 ML VIAL IV PRN (16:10)
--- NOTE | 2017-04-15 18:52 | DIAGNOSTIC IMAGING REPORT ---
MRI OF THE CERVICAL SPINE WITH AND WITHOUT CONTRAST CLINICAL HISTORY: Multiple sclerosis with new onset symptoms. COMPARISON: MRI of the cervical spine April 08, 2013. TECHNIQUE: Utilizing a 1.5 Tali magnet and dedicated coil, multiplanar, multiecho imaging of the cervical spine was performed before and after intravenous administration of 7.9 of Gadavist. FINDINGS: There is straightening of the normal cervical lordosis. No suspicious marrow replacement is present. Cervical cord signal and caliber are normal. No intracanalicular mass or fluid collection is present. There is no abnormal enhancement within the cervical cord. MRI of the thoracic spine will be reported separately. C2-C3: The central canal and neural foramen are patent. C3-C4: The central canal and neural foramen are patent. C4-C5: Posterior disc osteophyte complex results in mild narrowing of the central canal. There is moderate left and mild right neural foraminal stenosis. C5-C6: Posterior disc osteophyte complex results in mild narrowing of the central canal. This is unchanged since previous MRI of April 08, 2013. There is moderate bilateral neural foraminal stenosis. C6-C7: There is mild central canal narrowing due to posterior disc osteophyte complex. There is mild left neural foraminal stenosis C7-T1: Central canal and neural foramen are patent. IMPRESSION: 1. Normal cervical cord signal and caliber. No foci of demyelination within the cervical cord by MRI. 2. Mild multilevel central canal stenosis with moderate multilevel neural foraminal stenosis which is similar to MRI of April 08, 2013. Electronically signed by: Jemal Mora M.D. 04/15/2017 6:50 PM Dictated Date/Time: 04/15/2017 6:43 PM
--- NOTE | 2017-04-15 18:55 | DIAGNOSTIC IMAGING REPORT ---
THORACIC SPINE COMBO HISTORY: 46 years-old Female history MS with new onset symptoms acute right-sided weakness with history of multiple sclerosis. COMPARISON: Cervical spine MR of same day, MRI brain 04/14/2017 TECHNIQUE: Multiplanar multisequence MRI of the thoracic spine was obtained following the intravenous administration of 7.9 mL Gadavist FINDINGS: Large [id number] fur blower localizer images demonstrate no gross abnormality of the neck, chest or imaged upper abdomen. There is no acute fracture, subluxation, focal marrow edema or marrow replacing process. Signal within the cervical thoracic cord is within normal limits. No abnormal enhancement identified. Broad-based posterior disc bulge is noted at C6-C7 causing mild central canal stenosis on the sagittal images alone. There are 2 lesions within the T4 vertebral body which are circumscribed measuring 5 and 7 mm respectively and demonstrate increased T1 and T2 signal without enhancement suggesting small hemangiomas with similar appearing lesion seen at T11 and T12. There is mild left-sided facet arthropathy at T10-T11 which causes mild left foraminal narrowing. No significant central canal or foraminal narrowing. IMPRESSION: 1. Normal signal within the thoracic spinal cord without evidence of demyelinating disease or abnormal enhancement. 2. Subcentimeter hemangiomas noted at T4, T11 and T12. 3. Mild left-sided facet arthropathy at T10-T11 causes mild left-sided foraminal narrowing. No significant central canal stenosis identified. The above report was generated using voice recognition software. It may contain grammatical, syntax or spelling errors. Electronically signed by: Blanco Cruz M.D. 04/15/2017 6:53 PM Dictated Date/Time: 04/15/2017 6:45 PM
--- NOTE | 2017-04-15 19:04 | Progress Note ---
Medicine Progress Note Date & Time of Visit: Apr 15, 2017 at 15:20 . Subjective Speech improved. Right retrobulbar headache. No new neuro symptoms. . Objective Last 8 Hrs Date Time Temp Pulse Resp B/P (MAP) Pulse Ox O2 Delivery O2 Flow Rate FiO2 04/15/17 15:05 37.1 87 16 106/68 (81) 96 Room Air 04/15/17 12:08 37.3 92 16 120/77 (91) 96 Room Air 04/15/17 12:00 Room Air Physical Exam: General- no distress Lungs- clear Heart- RRR Abdomen- + BS, soft, nontender Extremities- no pretibial edema or calf tenderness Neuro- alert, oriented; PERRL, EOMI; hesitant speech; motor strength upper and lower extremities grossly intact . Laboratory Results: Last 24 Hours Test 04/15/17 06:12 White Blood Count 6.84 K/uL Red Blood Count 4.10 M/uL Hemoglobin 12.8 g/dL Hematocrit 37.5 % Mean Corpuscular Volume 91.5 fL Mean Corpuscular Hemoglobin 31.2 pg Mean Corpuscular Hemoglobin Concent 34.1 g/dl RDW Standard Deviation 43.1 fL RDW Coefficient of Variation 12.8 % Platelet Count 330 K/uL Mean Platelet Volume 9.6 fL Sodium Level 143 mmol/L Potassium Level 4.2 mmol/L Chloride Level 108 mmol/L Carbon Dioxide Level 26 mmol/L Anion Gap 9.0 mmol/L Blood Urea Nitrogen 10 mg/dl Creatinine 0.82 mg/dl Est Creatinine Clear Calc Drug Dose 88.1 ml/min Estimated GFR () 98.8 Estimated GFR (Non- 85.2 BUN/Creatinine Ratio 12.4 Random Glucose 91 mg/dl Calcium Level 8.2 mg/dl Triglycerides Level 118 mg/dl Cholesterol Level 145 mg/dl HDL Cholesterol 38 mg/dl LDL Cholesterol, Calculated 83 mg/dl VLDL Cholesterol, Calculated 24 mg/dl Cholesterol/HDL Ratio 3.8 Assessment & Plan EXPRESSIVE APHASIA Presented with expressive aphasia associated with right retrobulbar headache and visual changes. History of multiple sclerosis and migraines. CT head negative. MRI brain showed scattered foci within subcortical and periventricular white matter consistent with history of MS with small focus of enhancement within the right parietal lobe felt represent active demyelination. MRI cervical and thoracic spine did not show any evidence of acute demyelination. MRA cervical and intracranial vessels negative. Echo unremarkable. Speech improved. Seen by Neuro. [place] that symptoms most likely due to migraine rather than MS flare; small right parietal focus of demyelination would not explain her symptoms. Advised to: start aspirin 81 mg daily stop modafinil continue glatiramer acetate Has follow-up appt with Neuro in a few weeks. VTE PROPHYLAXIS SQ enoxaparin. DISPOSITION Discharge to home. Family Medicine follow-up with Dr. Cox. Neurology follow-up with Dr. Busby. . Current Inpatient Medications: Current Inpatient Medications Medications (Trade) Dose Ordered Sig/Selvin Route Start Time Stop Time Status Last Admin Dose Admin Ondansetron HCl (Zofran Inj) 4 mg Q4H PRN IV 04/14/17 15:45 05/14/17 15:44 04/15/17 16:10 4 MG Enoxaparin Sodium (Lovenox Inj) 40 mg Q24H SC 04/14/17 21:00 05/14/17 20:59 04/14/17 20:42 40 MG Sodium Chloride 1,000 ml @ 80 mls/hr [id number] IV 04/14/17 15:32 05/14/17 15:31 04/15/17 08:48 80 MLS/HR Acetaminophen (Tylenol Tab) 650 mg Q4H PRN PO 04/14/17 15:45 05/14/17 15:44 Alprazolam (Xanax Tab) 0.5 mg TID PRN PO 04/14/17 15:45 05/14/17 15:44 Multivitamins/ Minerals (Multivitamin W/ Minerals Tab) 1 tab DAILY PO 04/15/17 09:00 05/15/17 08:59 04/15/17 08:47 1 TAB Venlafaxine HCl (effeXOR EXTENDED REL CAP) 150 mg DAILY PO 04/15/17 09:00 05/15/17 08:59 04/15/17 08:47 150 MG Aspirin (Ecotrin Tab) 81 mg QAM PO 04/15/17 09:00 05/15/17 08:59 04/15/17 08:47 81 MG Gadobutrol (Gadavist) 8 mmol UD PRN IV 04/15/17 01:30 04/19/17 01:29
[2017-04-15] MEDS ORDERED: ASPI-428 PO (19:09)
--- NOTE | 2017-04-15 19:16 | Discharge Instructions ---
Discharge Instructions Date of Service Apr 15, 2017. Admission Reason for Admission: difficulty speaking . Discharge Discharge Diagnosis / Problem: difficulty speaking Discharge Goals Goal(s): Improve disease control Activity Recommendations Activity Limitations: resume your previous activity . Instructions / Follow-Up Instructions / Follow-Up APPOINTMENTS: NEUROLOGY 05/02/2017 8:40 AM Junior Busby MD FAMILY MEDICINE Dr. Cox OTHER INSTRUCTIONS: Dr. Busby thinks that your symptoms were probably due to migraine rather than MS. Stop taking modafinil (Provigil)- it can cause migraines. Take Ecotrin 81 mg daily. Seek medical attention if you have: * severe headache * new neurologic symptoms * any unanswered questions or concerns Call 911 if symptoms are severe. Call if you have any questions or problems. My cell # is [phone]. You can also reach a [facility] hospitalist on duty at [facility] 24 hours a day by calling [phone]. Please take good care of yourself. Junior Canales . Current Hospital Diet Patient's current hospital diet: Regular Diet Discharge Diet Recommended Diet: Regular Diet Procedures Procedures Performed: CT head- no significant findings. MRI brain- small spot in right side of brain (but probably not cause of your symptoms). MRI cervical and thoracic spine- some arthritis, no sign of MS flare. Pending Studies Studies pending at discharge: no Laboratory Results Lipid Panel Test 04/15/17 06:12 Range/Units Triglycerides Level 118 0-150 mg/dl Cholesterol Level 145 0-200 mg/dl HDL Cholesterol 38 mg/dl Cholesterol/HDL Ratio 3.8 LDL Cholesterol, Calculated 83 mg/dl Medical Emergencies . Who to Call and When: Medical Emergencies: If at any time you feel your situation is an emergency, please call 911 immediately. . Non-Emergent Contact Non-Emergency issues call your: Primary Care Provider, Hospital Doctor, Neurologist . . "Provider Documentation" section prepared by Junior Canales. . VTE Core Measure Inpt VTE Proph given/why not?: Enoxaparin (Lovenox)SQ
--- NOTE | 2017-04-15 19:48 | Discharge Summary ---
Discharge Summary Date of Service Apr 15, 2017. Discharge Summary Admission Date: Apr 14, 2017 at 15:38 Discharge Date: Apr 15, 2017 Discharge Disposition: Home Principal Diagnosis: expressive aphasia attributed to migraine . Secondary Diagnoses/Problems: Chronic and Resolved Medical Problems: (1) Melanoma Status: Resolved (2) MS (multiple sclerosis) Status: Chronic . Procedures: CT head MRI brain MRI cervical spine MRI thoracic spine MRA neck MRA head echo . Consultations: Neurology with Dr. Busby. . Medication Reconciliation New Medications: Aspirin (Ecotrin Low Strength) 81 Mg Tab 81 MG PO DAILY, #1 BTL No prescription necessary. Continued Medications: Alprazolam (Xanax) 0.5 Mg Tab 0.5 MG PO TID PRN, TAB Glatiramer Acetate (Copaxone) 40 Mg/Ml Inj 1 DOSE INJ UD Multivitamins/Minerals (Mvi With Minerals) Tab 1 TAB PO DAILY, TAB Venlafaxine Hcl (Effexor Extended Rel) 150 Mg Capcr 1 CAP PO DAILY Discontinued Medications: Modafinil (Provigil) 200 Mg Tab 1 TAB PO DAILY Admission Information HPI (per Admitting provider): This is a 46 year old female with a PMH of multiple sclerosis, depression presents with expressive aphasia; she states she was in her usual state of health until she woke up and could not get any words out. She also had a headache and R eye visual trouble - she states that the visual trouble is intermittent due to her MS, but the headache and expressive aphasia are new symptoms. She was seen by her primary care last week and was started on Provigil due to weakness secondary to MS. At that time, she had an MRI done, but this was not read as of today (04/14/17). Currently, she is writing for communication. . 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 History of multiple sclerosis and migraines. CT head negative. MRI brain showed scattered foci within subcortical and periventricular white matter consistent with history of MS with small focus of enhancement within the right parietal lobe felt represent active demyelination. MRI cervical and thoracic spine did not show any evidence of acute demyelination. MRA cervical and intracranial vessels negative. Echo unremarkable. Speech improved. Seen by Neuro. [place] that symptoms most likely due to migraine rather than MS flare; small right parietal focus of demyelination would not explain her symptoms. Advised to: start aspirin 81 mg daily stop modafinil continue glatiramer acetate Has follow-up appt with Neuro in a few weeks. VTE PROPHYLAXIS SQ enoxaparin. DISPOSITION Discharge to home. Family Medicine follow-up with Dr. Cox. Neurology follow-up with Dr. Busby. . Discharge Instructions Date of Service Apr 15, 2017. Admission Reason for Admission: difficulty speaking . Discharge Discharge Diagnosis / Problem: difficulty speaking Discharge Goals Goal(s): Improve disease control Activity Recommendations Activity Limitations: resume your previous activity . Instructions / Follow-Up Instructions / Follow-Up APPOINTMENTS: NEUROLOGY 05/02/2017 8:40 AM Junior Busby MD FAMILY MEDICINE Dr. Cox OTHER INSTRUCTIONS: Dr. Busby thinks that your symptoms were probably due to migraine rather than MS. Stop taking modafinil (Provigil)- it can cause migraines. Take Ecotrin 81 mg daily. Seek medical attention if you have: * severe headache * new neurologic symptoms * any unanswered questions or concerns Call 911 if symptoms are severe. Call if you have any questions or problems. My cell # is [phone]. You can also reach a [facility] hospitalist on duty at [facility] 24 hours a day by calling [phone]. Please take good care of yourself. Junior Canales . Current Hospital Diet Patient's current hospital diet: Regular Diet Discharge Diet Recommended Diet: Regular Diet Procedures Procedures Performed: CT head- no significant findings. MRI brain- small spot in right side of brain (but probably not cause of your symptoms). MRI cervical and thoracic spine- some arthritis, no sign of MS flare. Pending Studies Studies pending at discharge: no Laboratory Results Lipid Panel Test 04/15/17 06:12 Range/Units Triglycerides Level 118 0-150 mg/dl Cholesterol Level 145 0-200 mg/dl HDL Cholesterol 38 mg/dl Cholesterol/HDL Ratio 3.8 LDL Cholesterol, Calculated 83 mg/dl Medical Emergencies . Who to Call and When: Medical Emergencies: If at any time you feel your situation is an emergency, please call 911 immediately. . Non-Emergent Contact Non-Emergency issues call your: Primary Care Provider, Hospital Doctor, Neurologist . . "Provider Documentation" section prepared by Junior Canales. . VTE Core Measure Inpt VTE Proph given/why not?: Enoxaparin (Lovenox)SQ .
== END 2017-04-15 19:49 | disposition home or self-care (01) | DRG 103 ==
LOC: C.EDB 13:07 → C.2T 15:38 → ENRESERV 15:52
PROVIDERS: ADMIT Family Medicine; ATTEND Hospitalist
DX: G43.909 Migraine, unspecified, not intractable, without status migrainosus (principal); R47.01 Aphasia; G35 Multiple sclerosis; R29.898 Other symptoms and signs involving the musculoskeletal system; F32.9 Major depressive disorder, single episode, unspecified; F17.200 Nicotine dependence, unspecified, uncomplicated; Z51.81 Encounter for therapeutic drug level monitoring; Z79.899 Other long term (current) drug therapy; Z85.820 Personal history of malignant melanoma of skin

== ENCOUNTER 2020-12-23 12:48 | Inpatient (IN) ==
[2020-12-23] MEDS ORDERED: FAMOTIDINE 20 MG in SYRINGE 3 ML IV STA (14:19)
[2020-12-23] MEDS ORDERED: ONDANSETRON INJ 2 MG/ML 2 ML VIAL IV STA (14:19)
[2020-12-23] MEDS ORDERED: SODIUM CHLORIDE 0.9% 500 ML IV STA (14:19)
--- NOTE | 2020-12-23 14:22 | Emergency Department Note ---
Impression & Plan Enteritis, Mucocele, appendix, MS (multiple sclerosis) ED Provider Note NAME: VÍCTOR ZHANG AGE: 50 SEX: F ARRIVES VIA: Walk-In INFORMANT: Patient, ED PROVIDER(S): Graham Aguilar MD CHIEF COMPLAINT: Abdominal pain, nausea. PLAN: Disposition: Admit MEDICAL DECISION MAKING: The patient is a pleasant 50 y/o woman with a pmhx of MS, GERD who presents to the emergency department with abdominal pain, nausea and decreased appetite over the past several days. She denies diarrhea, urinary symptoms. She reports she has been taking pepto bismol to help with her abdominal pain. She denies urinary sx. Denies fever, cough, congestion, cp, sob. She had similar episode several weeks ago with n/v but resolved completely after a day or so. On arrival the patient is uncomfortable but in NAD, AFVSS. She appears clinically dry. She has generalized abdominal tenderness to palpation increased in RUQ. Involuntary guarding. CXR negative for acute cardiopulmonary process and without free air. WBC 14.7K, neutrophil predominance. H/H wnl. Platelets 470, likely reactive. Chemistry without acidosis. Lactate 0.8. Electrolytes unremarkable. LFTs without significant abnormality. Lipase wnl. Covid-[address] abd/pelvis demonstrates evidence of enteritis with associated reactive LN. However note is made of "focal dilatation of the mid appendix which measures up to 11 mm in diameter. The tip is normal in caliber, and appendix is fluid-filled. No significant surrounding inflammation is identified." Most likely mucocele however appendicitis is not excluded. Resident, Dr. Dotson, discussed case with general surgery on-call, Tova Irwin PAC with Dr. Barrientos, who evaluated the patient and agrees with plan for medicine admission for IV abx and monitoring of exam. Mostly likely mucocele and symptoms 2/2 enteritis. Patient agrees with plan for admission. IV zosyn ordered. Case was discussed with Izaiah Moura PAC, with Dr. Lenny Bliss hospitalist who will evaluate the patient for admission. This patient was managed with the assistance of resident, Dr. Dotson. I discussed the case with the resident, examined the patient, and confirm the findings and plan as documented in this note. Triage Nursing notes reviewed and agree them. Prior medical records reviewed Vital Signs: reviewed and remarkable for no significant abnormalities Differential diagnosis: Appendicitis, ovarian cyst, ovarian torsion, ectopic , TOA, PID, inf ections, diverticulitis, UTI, obstruction, mesenteric ischemia, aortic pathology, inflammatory bowel disease, renal colic, PUD, pancreatitis, biliary pathology, hernia, volvulus, constipation, as well as other pathologies. ER treatment provided: See below. Diagnostics interpreted by me: Cardiac Monitoring: An order for continuous cardiac monitoring was placed and demonstrated NSR, 98 bpm, no ectopy. Laboratory studies: See below Imaging studies: See below Consultation(s): Case was discussed with Bee Mckeon, [facility], with [facility] who will evaluate the patient for admission. HPI: The patient is a pleasant 50 y/o woman with a pmhx of MS, DYLAN who presents to the emergency department with abdominal pain, nausea and decreased appetite over the past several days. She denies diarrhea, urinary symptoms. She reports she has been taking pepto bismol to help with her abdominal pain. She denies urinary sx. Denies fever, cough, congestion, cp, sob. She had similar episode several weeks ago with n/v but resolved completely after a day or so. ROS: See above HPI for pertinent positives & negatives. A total of 10 systems reviewed and were otherwise negative. PAST MEDICAL HISTORY:See Below PAST SURGICAL HISTORY:See Below FAMILY HISTORY:See Below SOCIAL HISTORY:See Below HOME MEDICATIONS:See Below ALLERGIES:See Below VITALS:See Below PHYSICAL EXAMINATION: GENERAL: Awake, alert, uncomfortable-appearing, in no distress, BMI 32.7. HENT: Normocephalic, atraumatic. Oropharynx with dry mucous membranes and otherwise unremarkable. EYES: Normal conjunctiva. Sclera non-icteric. NECK: Supple. No nuchal rigidity. FROM. No JVD. RESPIRATORY: Clear to auscultation. CARDIAC: Regular rate, normal rhythm. Extremities warm and well perfused. Pulses equal. ABDOMEN: Soft, non-distended. Generalized abdominal tenderness to palpation increased in RUQ. Involuntary guarding. No masses. RECTAL: Deferred. MUSCULOSKELETAL: Chest examination reveals no tenderness. The back is symmetrical on inspection without obvious abnormality. There is no CVA ten derness to palpation. No joint edema. LOWER EXTREMITIES: Calves are equal size bilaterally and non-tender. No edema. No discoloration. NEURO: Normal sensorium. No sensory or motor deficits noted. SKIN: No rash or jaundice noted. Graham Aguilar MD Past Med/Surg History Medical History Anxiety and depression GERD (gastroesophageal reflux disease) MS (multiple sclerosis) Tobacco use Surgical History History of section Family History Other Hypertension Lung cancer Ovarian cancer Social History Smoking Status: Current every day smoker Tobacco Type: Cigarettes Cigarettes Per Day: 1; Second Hand Exposure: No; Do You Dip or Chew Tobacco: No; Tobacco Cessation Education Requested by Patient: No Hx Alcohol Use: Yes Alcohol type: wine Hx Substance Use: No Preferred Language: Thai Communication Ability: Effective Business Systems Manager Required: No Beliefs That Will Affect Care: None Current Living Situation: Spouse Current Living Situation Comment: with Other Information That Helps Us Care for You: No Feels Safe at Home: Yes Safety Concerns: Feels Safe At This Time Assistive Devices: Cane Allergies Allergies Allergy/AdvReac Type Severity Reaction Status Date / Time glatiramer (copolymer 1) AdvReac Severe Diarrhea Verified 12/23/20 14:50 [From Copaxone] topiramate AdvReac Severe Patient Unverified 12/23/20 14:56 stated she has a psychotic episode Home Meds Home Medications Medication Instructions Recorded Confirmed alprazolam 0.5 mg tablet (Xanax) 0.5 mg PO TID PRN 10/24/19 12/23/20 bupropion HCl 100 mg tablet,12 hr 100 mg PO BID 10/24/19 12/23/20 sustained-release (Wellbutrin SR) cholecalciferol (vitamin D3) 25 0 mcg PO QAM 10/24/19 12/23/20 mcg (1,000 unit) tablet (Vitamin D3) magnesium oxide 400 mg PO QAM 10/24/19 12/23/20 multivitamin (Daily Multi-Vitamin) 1 tab PO QAM 10/24/19 12/23/20 omeprazole 20 mg capsule,delayed 20 mg PO QAM 10/24/19 12/23/20 release venlafaxine 150 mg 150 mg PO QAM 10/24/19 12/23/20 capsule,extended release 24 hr (Effexor XR) zinc 50 mg tablet 50 mg PO QAM 10/24/19 12/23/20 mirabegron 50 mg tablet,extended 50 mg PO QAM 12/23/20 12/23/20 release 24 hr (Myrbetriq) Results & Data (ED) Vital Signs Vital Signs - 24 hr 12/23/20 13:01 12/23/20 16:00 Temperature 36.8 C Temperature Source Temporal Artery Scan Pulse Rate 102 H Pulse Rate [Right Finger] 73 Respiratory Rate 18 20 Respiratory Effort / Characteristics Non-Labored Spontaneous Respiratory Depth Normal Blood Pressure 148/83 H Blood Pressure [Right Arm] 148/90 H Blood Pressure Mean 104 Blood Pressure Mean [Right Arm] 109 Pulse Oximetry 96 97 Sepsis Recent Fever Within 48 Hours No Sepsis New/Unexplained Change in Mental Status No Sepsis Action Taken by Nursing No Action Required Laboratory Data Attestation: I reviewed the patient's lab results. Result diagrams: 12/23/20 14:24 12/23/20 14:24 Lab Results 12/23/20 12/23/20 12/23/20 Range/Units 14:24 14:24 14:24 WBC 14.71 H (4.8-10.8) K/uL RBC 4.57 (4.2-5.4) M/uL Hgb 13.7 (12.0-16.0) g/dL Hct 40.5 (37-47) % MCV 88.6 (80-100) fL MCH 30.0 (25-34) pg MCHC 33.8 (32-36) g/dL RDW Std Deviation 46.7 H (36.4-46.3) fL RDW Coeff of Alicia 14.3 (11.5-14.5) % Plt Count 470 H (130-400) K/uL MPV 9.4 (7.4-10.4) fL Immature Gran % (Auto) 0.2 % Neut % (Auto) 78.2 % Lymph % (Auto) 13.9 % Desha % (Auto) 6.2 % Eos % (Auto) 1.4 % Baso % (Auto) 0.1 % Neut # (Auto) 11.49 H (1.4-6.5) K/uL Lymph # (Auto) 2.05 (1.2-3.4) K/uL Desha # (Auto) 0.91 H (0.11-0.59) K/uL Eos # (Auto) 0.21 (0-0.5) K/uL Baso # (Auto) 0.02 (0-0.2) K/uL Immature Gran # (Auto) 0.03 H (0.00-0.02) K/uL Sodium 137 (136-145) mmol/L Potassium 4.0 (3.5-5.1) mmol/L Chloride 106 (98-107) mmol/L Carbon Dioxide 28 (21-32) mmol/L Anion Gap 3.0 (3-11) BUN 11 (7-18) mg/dl Creatinine 0.77 (0.6-1.2) mg/dl Est Cr Clr Drug Dosing 94.3 ml/min Est GFR ( Amer) 103.6 ml/min Est GFR (Non-Af Amer) 89.4 ml/min BUN/Creatinine Ratio 14.5 (10-20) Glucose 104 H (70-99) mg/dl Calcium 8.9 (8.5-10.1) mg/dl Total Bilirubin 0.5 (0.2-1) mg/dl AST 20 (15-37) U/L ALT 31 (12-78) U/L Alkaline Phosphatase 114 (45-117) U/L Total Protein 7.3 (6.4-8.2) gm/dl Albumin 3.5 (3.4-5.0) gm/dl Globulin 3.8 (2.5-4.0) gm/dl Albumin/Globulin Ratio 0.9 (0.9-2) Lipase 109 (73-393) U/L HCG, Qual Negative (Negative) COVID-19 Eval Order SARS-CoV-2 (PCR) (Negative) 12/23/20 12/23/20 Range/Units 15:19 15:19 WBC (4.8-10.8) K/uL RBC (4.2-5.4) M/uL Hgb (12.0-16.0) g/dL Hct (37-47) % MCV (80-100) fL MCH (25-34) pg MCHC (32-36) g/dL RDW Std Deviation (36.4-46.3) fL RDW Coeff of Alicia (11.5-14.5) % Plt Count (130-400) K/uL MPV (7.4-10.4) fL Immature Gran % (Auto) % Neut % (Auto) % Lymph % (Auto) % Desha % (Auto) % Eos % (Auto) % Baso % (Auto) % Neut # (Auto) (1.4-6.5) K/uL Lymph # (Auto) (1.2-3.4) K/uL Desha # (Auto) (0.11-0.59) K/uL Eos # (Auto) (0-0.5) K/uL Baso # (Auto) (0-0.2) K/uL Immature Gran # (Auto) (0.00-0.02) K/uL Sodium (136-145) mmol/L Potassium (3.5-5.1) mmol/L Chloride (98-107) mmol/L Carbon Dioxide (21-32) mmol/L Anion Gap (3-11) BUN (7-18) mg/dl Creatinine (0.6-1.2) mg/dl Est Cr Clr Drug Dosing ml/min Est GFR ( Amer) ml/min Est GFR (Non-Af Amer) ml/min BUN/Creatinine Ratio (10-20) Glucose (70-99) mg/dl Calcium (8.5-10.1) mg/dl Total Bilirubin (0.2-1) mg/dl AST (15-37) U/L ALT (12-78) U/L Alkaline Phosphatase (45-117) U/L Total Protein (6.4-8.2) gm/dl Albumin (3.4-5.0) gm/dl Globulin (2.5-4.0) gm/dl Albumin/Globulin Ratio (0.9-2) Lipase (73-393) U/L HCG, Qual (Negative) COVID-19 Eval Order Covid19 at [facility] SARS-CoV-2 (PCR) NEGATIVE (Negative) Administered Medications Bupropion HCl (Bupropion Sr 100 Mg Tabcr) 100 mg PO BID MOHSEN Stop: 01/22/21 20:59 Last Admin: 12/23/20 22:09 Dose: 100 mg Documented by: [id number] Potassium Chloride/Sodium Chloride (Normal Saline W/20 Meq Kcl) 20 meq in 1,000 mls @ 100 mls/hr IV .Q10H MOHSEN Stop: 12/24/20 06:59 Last Admin: 12/23/20 22:10 Dose: 100 mls/hr Documented by: [id number] Famotidine 20 mg/ Syringe 5 mls @ 2.5 mls/min IV BID MOHSEN Stop: 01/22/21 20:59 Last Admin: 12/23/20 22:09 Dose: 2.5 mls/min Documented by: [id number] Ketorolac Tromethamine (Ketorolac Tromethamine 15 Mg/Ml Vial) 15 mg IV Q6H PRN PRN Reason: Pain Stop: 12/28/20 21:36 Last Admin: 12/23/20 22:09 Dose: 15 mg Documented by: [id number] Ondansetron HCl (Ondansetron Inj 2 Mg/Ml 2 Ml Vial) 4 mg IV Q6H PRN PRN Reason: Nausea Stop: 01/22/21 18:44 Last Admin: 12/23/20 22:10 Dose: 4 mg Documented by: [id number] Discontinued Medications Acetaminophen (Acetaminophen 1000 Mg/100 Ml Iv) 1,000 mg IV NOW STA Stop: 12/23/20 14:48 Last Admin: 12/23/20 14:57 Dose: 1,000 mg Documented by: [id number] Famotidine (Famotidine 20mg/5ml Iv Push) Confirm Administered Dose 20 mg IV .STK-MED ONE Stop: 12/23/20 14:57 Last Admin: 12/23/20 14:57 Dose: 20 mg Documented by: [id number] Famotidine 20 mg/ Syringe 5 mls @ 2.5 mls/min IV NOW STA Stop: 12/23/20 14:20 Last Admin: 12/23/20 15:06 Dose: Not Given Documented by: [id number] Sodium Chloride (Nss) 500 mls @ 999 mls/hr IV .Q31M STA Stop: 12/23/20 14:49 Last Admin: 12/23/20 15:06 Dose: Not Given Documented by: [id number] Sodium Chloride (Nss 1000ml) 1,000 mls @ 999 mls/hr IV .Q1H1M MOHSEN Stop: 12/23/20 17:00 Last Infusion: 12/23/20 18:24 Dose: 0 mls/hr Documented by: [id number] Admin: 12/23/20 16:29 Dose: 999 mls/hr Documented by: [id number] Infusion: 12/23/20 16:00 Dose: 999 mls/hr Documented by: [id number] Admin: 12/23/20 14:59 Dose: 999 mls/hr Documented by: [id number] Piperacillin Sod/Tazobactam Sod (Zosyn) 4.5 gm in 120 mls @ 240 mls/hr IV NOW ONE Stop: 12/23/20 17:43 Last Infusion: 12/23/20 18:52 Dose: 0 mls/hr Documented by: [id number] Admin: 12/23/20 18:20 Dose: 240 mls/hr Documented by: [id number] Ioversol (Optiray 320 100ml) 92 ml IV ONCE ONE Stop: 12/23/20 16:25 Last Admin: 12/23/20 16:24 Dose: 92 ml Documented by: [id number] Ondansetron HCl (Ondansetron Inj 2 Mg/Ml 2 Ml Vial) 4 mg IV NOW STA Stop: 12/23/20 14:20 Last Admin: 12/23/20 14:58 Dose: 4 mg Documented by: [id number] Imaging Data Radiologist's Impression: Abdomen/Pelvis CT 12/23/20 14:25 CT SCAN OF THE ABDOMEN AND PELVIS WITH IV CONTRAST CLINICAL HISTORY: Nausea. Generalized abdominal pain. COMPARISON STUDY: No priors. TECHNIQUE: Following the IV administration of 92 cc of Optiray 320, CT scan of the abdomen and pelvis is performed from the lung bases to the proximal femora. Images are reviewed in the axial, sagittal, and coronal planes. IV contrast was administered without complication. A dose lowering technique was utilized adhering to the principles of ALARA. CT DOSE: 610.96 mGy.cm FINDINGS: Lung bases: The heart is normal in size and without pericardial effusion. The lung bases are clear noting dependent atelectasis. A small hiatal hernia is noted. Liver: The contrast-enhanced liver is normal in size, contour, and attenuation. There is no intrahepatic biliary ductal dilatation. The hepatic veins and portal veins are patent. Gallbladder: There is a calcified gallstone. The gallbladder is otherwise normal in appearance. Spleen: Normal in size and attenuation. Pancreas: Unremarkable. Adrenal glands: Unremarkable. Kidneys: The contrast enhanced kidneys are normal in size and without hydronephrosis. The kidneys enhance symmetrically. Abdominal vasculature: The abdominal aorta is normal in course and caliber. Bowel: Mild fecal retention is seen throughout the colon. There is no bowel obstruction. There are mildly thick-walled loops of jejunum in the left upper quadrant with surrounding infiltration. This is best seen on images #[id number]. There is mild focal dilatation of the appendix which measures up to 11 mm as seen on image #295. The appendix is filled with fluid, and the wall appears mildly hyperemic. No surrounding inflammation is seen. Peritoneum: No intraperitoneal free air is identified. Trace free fluid is seen in the pelvis. Lymphadenopathy: There are prominent subcentimeter mesenteric and retroper itoneal lymph nodes. Pelvic viscera: The bladder, uterus, and adnexa are normal as visualized. Skeletal structures: No lytic or blastic lesions are seen. IMPRESSION: 1. There are mildly thick-walled loops of jejunum in the left upper quadrant with surrounding infiltration. The appearance suggests a nonspecific enteritis and clinical correlation will be required. 2. There are prominent subcentimeter as enteric and retroperitoneal lymph nodes which may be reactive. 3. There is trace nonspecific free fluid in the pelvis. 4. There is no bowel obstruction. 5. There is focal dilatation of the mid appendix which measures up to 11 mm in diameter. The tip is normal in caliber, and appendix is fluid-filled. No significant surrounding inflammation is identified. Findings are considered low suspicion for acute appendicitis which is not entirely excluded. The appearance is more suggestive of a small mucocele. Clinical correlation will be essential and surgical assessment is recommended. 6. Cholelithiasis. 7. Additional findings as above. Findings were discussed with Dr. Dotson in the emergency department at the time of interpretation. ACT 112: Negative or not required by law. Electronically signed by: Tomasz Otero M.D. 12/23/2020 4:48 PM Chest X-Ray 12/23/20 14:47 XR chest 1V portable CLINICAL HISTORY: Abdominal pain. COMPARISON STUDY: Chest radiograph April 14, 2017. FINDINGS: Lung volumes are normal. Lungs are clear. There is no pneumothorax or pleural effusion. Cardiac size is normal. Mediastinal contours are normal. There is no evidence for pulmonary edema. IMPRESSION: No acute cardiopulmonary findings. ACT 112: Negative or not required by law. Electronically signed by: Jemal Mora M.D. 12/23/2020 2:57 PM Discharge Plan Visit Data Chief Complaint: Nausea Stated Complaint: NAUSEA, ABD PAIN, BACK PAIN 3 DAYS ED Midlevel Provider: Nathalie Dotson Discharge Problem: Enteritis, Mucocele, appendix, MS (multiple sclerosis) Patient Disposition: Admitted As Inpatient Discharge Instructions Interventions: ED Discharge Assessment Last Done: 12/23/20 19:48 Resident Activity Tracking Resident Involvement: Resident Care Provided (Patient seen and evaluated with attending physician, please see their note for MDM) Care Provided: Adult ED
[2020-12-23 14:37] LABS: Basophils # (auto) 0.02 K/uL (0-0.2); Basophils % (auto) 0.1 %; Eosinophils # (auto) 0.21 K/uL (0-0.5); Eosinophils % (auto) 1.4 %; Hematocrit (blood only) 40.5 % (37-47); Hemoglobin 13.7 g/dL (12.0-16.0); Immature Granulocytes # (auto) 0.03 K/uL (0.00-0.02); Immature Granulocytes % (auto) 0.2 %; Lymphocytes # (auto) 2.05 K/uL (1.2-3.4); Lymphocytes % (auto) 13.9 %; Mean Corpuscular Hgb Conc 33.8 g/dL (32-36); Mean Corpuscular Volume 88.6 fL (80-100); Mean Platelet Volume 9.4 fL (7.4-10.4); Monocytes # (auto) 0.91 K/uL (0.11-0.59); Monocytes % (auto) 6.2 %; Neutrophils # (auto) 11.49 K/uL (1.4-6.5); Neutrophils % (auto) 78.2 %; Platelet Count 470 K/uL (130-400); RDW Coefficient of Variation 14.3 % (11.5-14.5); RDW Standard Deviation 46.7 fL (36.4-46.3); Red Blood Count 4.57 M/uL (4.2-5.4); White Blood Count 14.71 K/uL (4.8-10.8)
[2020-12-23] MEDS ORDERED: ACETAMINOPHEN 1000 MG/100 ML IV IV STA (14:47)
[2020-12-23 14:54] LABS: Albumin Level 3.5 gm/dl (3.4-5.0); BUN Creatinine Ratio 14.5 (10-20); Calcium 8.9 mg/dl (8.5-10.1); Creatinine Clr Calc Pharmacy 94.3 ml/min; Est GFR (African American) 103.6 ml/min; Est GFR (Non-African American) 89.4 ml/min
[2020-12-23] MEDS ORDERED: FAMOTIDINE 20MG/5ML IV PUSH IV ONE (14:56)
[2020-12-23 14:57] LABS: Albumin Globulin Ratio 0.9 (0.9-2); Bilirubin,Total 0.5 mg/dl (0.2-1); Globulin 3.8 gm/dl (2.5-4.0); Total Protein 7.3 gm/dl (6.4-8.2)
--- NOTE | 2020-12-23 14:58 | XRay Report ---
XR chest 1V portable CLINICAL HISTORY: Abdominal pain. COMPARISON STUDY: Chest radiograph April 14, 2017. FINDINGS: Lung volumes are normal. Lungs are clear. There is no pneumothorax or pleural effusion. Car diac size is normal. Mediastinal contours are normal. There is no evidence for pulmonary edema. IMPRESSION: No acute cardiopulmonary findings. ACT 112: Negative or not required by law. Electronically signed by: Jemal Mora M.D. 12/23/2020 2:57 PM
[2020-12-23] MEDS: SODIUM CHLORIDE 0.9% 1000ML 1,000 ML IV SCH ×2 (14:59→16:29)
[2020-12-23 15:23] LABS: Pregnancy Test, Serum Negative (Negative)
[2020-12-23] MEDS ORDERED: OPTIRAY 320 100ml IV ONE (16:24)
--- NOTE | 2020-12-23 16:49 | CT Scan Report ---
CT SCAN OF THE ABDOMEN AND PELVIS WITH IV CONTRAST CLINICAL HISTORY: Nausea. Generalized abdominal pain. COMPARISON STUDY: No priors. TECHNIQUE: Following the IV administration of 92 cc of Optiray 320, CT scan of the abdomen and pelvi s is performed from the lung bases to the proximal femora. Images are reviewed in the axial, sagittal , and coronal planes. IV contrast was administered without complication. A dose lowering technique wa s utilized adhering to the principles of ALARA. CT DOSE: 610.96 mGy.cm FINDINGS: Lung bases: The heart is normal in size and without pericardial effusion. The lung bases are clear no ting dependent atelectasis. A small hiatal hernia is noted. Liver: The contrast-enhanced liver is normal in size, contour, and attenuation. There is no intrahepa tic biliary ductal dilatation. The hepatic veins and portal veins are patent. Gallbladder: There is a calcified gallstone. The gallbladder is otherwise normal in appearance. Spleen: Normal in size and attenuation. Pancreas: Unremarkable. Adrenal glands: Unremarkable. Kidneys: The contrast enhanced kidneys are normal in size and without hydronephrosis. The kidneys enh ance symmetrically. Abdominal vasculature: The abdominal aorta is normal in course and caliber. Bowel: Mild fecal retention is seen throughout the colon. There is no bowel obstruction. There are mi ldly thick-walled loops of jejunum in the left upper quadrant with surrounding infiltration. This is best seen on images #[id number]. There is mild focal dilatation of the appendix which measures up to 11 mm as seen on image #295. The appendix is filled with fluid, and the wall appears mildly hyperemic. N o surrounding inflammation is seen. Peritoneum: No intraperitoneal free air is identified. Trace free fluid is seen in the pelvis. Lymphadenopathy: There are prominent subcentimeter mesenteric and retroperitoneal lymph nodes. Pelvic viscera: The bladder, uterus, and adnexa are normal as visualized. Skeletal structures: No lytic or blastic lesions are seen. IMPRESSION: 1. There are mildly thick-walled loops of jejunum in the left upper quadrant with surrounding infiltr ation. The appearance suggests a nonspecific enteritis and clinical correlation will be required. 2. There are prominent subcentimeter as enteric and retroperitoneal lymph nodes which may be reactive . 3. There is trace nonspecific free fluid in the pelvis. 4. There is no bowel obstruction. 5. There is focal dilatation of the mid appendix which measures up to 11 mm in diameter. The tip is n ormal in caliber, and appendix is fluid-filled. No significant surrounding inflammation is identified . Findings are considered low suspicion for acute appendicitis which is not entirely excluded. The ap pearance is more suggestive of a small mucocele. Clinical correlation will be essential and surgical assessment is recommended. 6. Cholelithiasis. 7. Additional findings as above. Findings were discussed with Dr. Dotson in the emergency department at the time of interpretation. ACT 112: Negative or not required by law. Electronically signed by: Tomasz Otero M.D. 12/23/2020 4:48 PM
[2020-12-23] MEDS ORDERED: PIPERACILL/TAZOBAC CONSULT ACTIVE PRN ×2 (17:14→20:24)
[2020-12-23] MEDS ORDERED: PIPERACILLIN/TAZOBACTAM 4.5 GM/120 ML BAG IV ONE (17:14)
--- NOTE | 2020-12-23 17:14 | Surgery Consultation ---
Date of Consultation December 23, 2020 Assessment & Plan (1) Enteritis: This is a 50y F with a PMH of MS who presented to the [facility] ED on 12/23/20 with complaints of abdominal pain and nausea that started last /Sats. Dr. Barrientospatient has right sided and left upper quadrant abdominal pain-her CAT scan shows some thickened jejunum consistent with enteritis She does have a dilated appendix fluid-filled with normal tip and no inflammation consistent with a mucocele At the present time I would treat her for enteritis with antibiotics and possible GI evaluation At some point we will proceed with laparoscopic appendectomy but this is not an urgent situation and would not be for weeks to a month or 2 likely (2) Mucocele, appendix: History of Present Illness History of Present Illness This is a 50y F with a PMH of MS who presented to the [facility] ED on 12/23/20 with complaints of abdominal pain and nausea that started last /Sats. Patient reports a history of this happening 3 weeks ago with similar symptoms, ass ociated with a couple bouts of emesis that had self resolved. Due to patient's return of symptoms and ongoing progression over the last few days she decided to come into the hospital for further workup. In the patient underwent a CT a/p that revealed mildly thick-walled loops of jejunum in the left upper quadrant with surrounding infiltration, suggesting nonspecific enteritis. Along with focal dilatation of the mid appendix which measures up to 11 mm in diameter, with a normal caliber tip, without surrounding inflammatory changes, suggestive of a small mucocele." Patient says her abdominal pain was generalized to the bilateral mid-abdomen, but now seems worse on the right. She endorses bloating, nausea, some back pain near her flanks, and constipation. She last ate some ice- cream last night, but was unable to finish it. Today she has just had water. She denies fevers/chills, sick contacts, diarrhea, CP/SOB. Her prior abdominal surgical history includes a . Allergies Allergy/AdvReac Type Severity Reaction Status Date / Time glatiramer (copolymer 1) AdvReac Severe Diarrhea Verified 12/23/20 14:50 [From Copaxone] topiramate AdvReac Severe Patient Unverified 12/23/20 14:56 stated she has a psychotic episode Home Medications Medication Instructions Recorded Confirmed Type alprazolam 0.5 mg tablet (Xanax) 0.5 mg PO TID PRN 10/24/19 12/23/20 History bupropion HCl 100 mg tablet,12 hr 100 mg PO BID 10/24/19 12/23/20 History sustained-release (Wellbutrin SR) cholecalciferol (vitamin D3) 25 0 mcg PO QAM 10/24/19 12/23/20 History mcg (1,000 unit) tablet (Vitamin D3) magnesium oxide 400 mg PO QAM 10/24/19 12/23/20 History multivitamin (Daily Multi-Vitamin) 1 tab PO QAM 10/24/19 12/23/20 History omeprazole 20 mg capsule,delayed 20 mg PO QAM 10/24/19 12/23/20 History release venlafaxine 150 mg 150 mg PO QAM 10/24/19 12/23/20 History capsule,extended release 24 hr (Effexor XR) zinc 50 mg tablet 50 mg PO QAM 10/24/19 12/23/20 History mirabegron 50 mg tablet,extended 50 mg PO QAM 12/23/20 12/23/20 History release 24 hr (Myrbetriq) Patient History Medical History MS (multiple sclerosis) Social History Smoking Status: Never smoker Preferred Language: Slovenian Feels Safe at Home: Yes Review of Systems Constitutional: no fever and no chills Respiratory: no dyspnea Cardiovascular: no chest pain Gastrointestinal: + abdominal pain, + bloating, + nausea and + constipation; no vomiting Physical Exam Physical Exam: awake/alert Constitutional: no acute distress Respiratory: normal respiratory effort Gastrointestinal (Abdomen): Inspection/Auscultation: + abdomen distended (mild) Percussion/Palpation: + abdomen tender (ttp along R side of abdomen, mild in L mid abdomen) and abdomen soft Results & Data ([facility]) Vital Signs (Past 12 Hours) Vital Signs Temp Pulse Resp BP Pulse Ox 12/23/20 13:01 36.8 C 102 H 18 148/[address] SCAN OF THE ABDOMEN AND PELVIS WITH IV CONTRAST CLINICAL HISTORY: Nausea. Generalized abdominal pain. COMPARISON STUDY: No priors. TECHNIQUE: Following the IV administration of 92 cc of Optiray 320, CT scan of the abdomen and pelvis is performed from the lung bases to the proximal femora. Images are reviewed in the axial, sagittal, and coronal planes. IV contrast was administered without complication. A dose lowering technique was utilized adher ing to the principles of ALARA. CT DOSE: 610.96 mGy.cm FINDINGS: Lung bases: The heart is normal in size and without pericardial effusion. The lung bases are clear noting dependent atelectasis. A small hiatal hernia is noted. Liver: The contrast-enhanced liver is normal in size, contour, and attenuation. There is no intrahepatic biliary ductal dilatation. The hepatic veins and portal veins are patent. Gallbladder: There is a calcified gallstone. The gallbladder is otherwise normal in appearance. Spleen: Normal in size and attenuation. Pancreas: Unremarkable. Adrenal glands: Unremarkable. Kidneys: The contrast enhanced kidneys are normal in size and without hydronephrosis. The kidneys enhance symmetrically. Abdominal vasculature: The abdominal aorta is normal in course and caliber. Bowel: Mild fecal retention is seen throughout the colon. There is no bowel obstruction. There are mildly thick-walled loops of jejunum in the left upper quadrant with surrounding infiltration. This is best seen on images #[id number]. There is mild focal dilatation of the appendix which measures up to 11 mm as seen on image #295. The appendix is filled with fluid, and the wall appears mildly hyperemic. No surrounding inflammation is seen. Peritoneum: No intraperitoneal free air is identified. Trace free fluid is seen in the pelvis. Lymphadenopathy: There are prominent subcentimeter mesenteric and retroperitoneal lymph nodes. Pelvic viscera: The bladder, uterus, and adnexa are normal as visualized. Skeletal structures: No lytic or blastic lesions are seen. IMPRESSION: 1. There are mildly thick-walled loops of jejunum in the left upper quadrant with surrounding infiltration. The appearance suggests a nonspecific enteritis and clinical correlation will be required. 2. There are prominent subcentimeter as enteric and retroperitoneal lymph nodes which may be reactive. 3. There is trace nonspecific free fluid in the pelvis. 4. There is no bowel obstruction. 5. There is focal dilatation of the mid appendix which measures up to 11 mm in diameter. The tip is normal in caliber, and appendix is fluid-filled. No significant surrounding inflammation is identified. Findings are considered low suspicion for acute appendicitis which is not entirely excluded. The appearance is more suggestive of a small mucocele. Clinical correlation will be essential and surgical assessment is recommended. 6. Cholelithiasis. 7. Additional findings as above. Findings were discussed with Dr. Dotson in the emergency department at the time of interpretation. ACT 112: Negative or not required by law. Electronically signed by: Tomasz Otero M.D. 12/23/2020 4:48 PM PG Care Time/CCT Total # of Minutes Spent Total Time Spent with Patient: Total time spent is greater than 50% in coordination of care (as documented) at patient's floor/unit and/or counseling patient: Coding Level of Care Code 45098 Inpt Consult Level 4 Diagnoses Enteritis K52.9 Mucocele, appendix K38.8
[2020-12-23] MEDS ORDERED: MoRPHine SULFATE 2 MG/ML CARP IV PRN (18:45)
--- NOTE | 2020-12-23 19:37 | History & Physical Report ---
Date of Service December 23, 2020 Assessment & Plan (1) Abdominal pain: (2) Enteritis: (3) Mucocele, appendix: Plan: Pt is 50 y/o F with PMH MS, GERD, anxiety, depression, tobacco use presented to ER with complaint of abdominal pain. Patient states 3 weeks ago started with upper/mid abdominal pain with vomiting then improvement. Recurrent mid abdominal pain started several days ago In ER pt afebrile, vitals stable. WBC: 14. No significant electrolyte abnormalcy CT ABD/PELVIS: 1. There are mildly thick-walled loops of jejunum in the left upper quadrant with surrounding infiltration. The appearance suggests a nonspecific enteritis and clinical correlation will be required. 2. There are prominent subcentimeter as enteric and retroperitoneal lymph nodes which may be reactive. 3. There is trace nonspecific free fluid in the pelvis. 4. There is no bowel obstruction. 5. There is focal dilatation of the mid appendix which measures up to 11 mm in diameter. The tip is normal in caliber, and appendix is fluid-filled. No significant surrounding inflammation is identified. Findings are considered low suspicion for acute appendicitis which is not entirely excluded. The appearance is more suggestive of a small mucocele. Clinical correlation will be essential and surgical assessment is recommended. 6. Cholelithiasis. In ER given NSS, Pepcid, Zosyn, Zofran Clear liquid diet Zofran, morphine as needed IVF Zosyn General surgery consult -saw patient in ER. Recommends conservative measures at this time, IV antibiotics CBC, BMP in a.m. (4) MS (multiple sclerosis): Plan: Not on any current medication. No signs of acute flare. Follows with neurology (5) GERD (gastroesophageal reflux disease): Plan: Hold oral PPI and will change to IV H2 rigo, reassess tomorrow (6) Anxiety and depression: Plan: Stable Continue Wellbutrin, Effexor, Xanax as needed DVT Prophylaxis -SCDs Full Code as per discussion with pt Follows with Dr Oliver for routine care Pt was seen and care coordinated with Dr Galvez. See addendum History of Present Illness Chief Complaint: Abdominal pain Primary Care Provider: Dr. Oliver Pt is 50 y/o F with PMH MS, GERD, anxiety, depression, tobacco use presented to ER with complaint of abdominal pain. Patient states 3 weeks ago started with upper/mid and lower abdominal pain. Also reports some low back discomfort. Describes abdominal pain as burning sensation with intermittent stabbing sensation. States at that time had several episodes of vomiting. Patient mauro guerra was taking Pepto-Bismol and symptoms seem to be mildly improved. Reports several days ago started with abdominal pain and low back aching again. Denies any vomiting or diarrhea this week. Patient reports been several days without BM. She feels abdominal bloating. Has been taking Pepto-Bismol and noticed stools were darker in coloration. Denies hematochezia, hematemesis, fever, chills. Has chronic intermittent SYED, denies any changes. Denies diaphoresis, dizziness, syncope, vision changes, neck pain, CP, SOB, orthopnea, palpitations, cough, sore throat, choking, otalgia, rhinorrhea, paresthesias, weakness, extremity weakness, extremity edema, rashes, urinary symptoms. In ER CT ABD/PELVIS with mildly thick-walled loops of jejunum in the left upper quadrant with surrounding infiltration and focal dilatation of the mid appendix which measures up to 11 mm in diameter. The tip is normal in caliber, and appendix is fluid-filled. No significant surrounding inflammation is identified. Findings are considered low suspicion for acute appendicitis which is not entirely excluded. The appearance is more suggestive of a small mucocele. General surgery saw pt and felt conservative measures at this time with IV antibiotics. Allergies Allergy/AdvReac Type Severity Reaction Status Date / Time glatiramer (copolymer 1) AdvReac Severe Diarrhea Verified 12/23/20 14:50 [From Copaxone] topiramate AdvReac Severe Patient Unverified 12/23/20 14:56 stated she has a psychotic episode Home Medications Medication Instructions Recorded Confirmed Type alprazolam 0.5 mg tablet (Xanax) 0.5 mg PO TID PRN 10/24/19 12/23/20 History bupropion HCl 100 mg tablet,12 hr 100 mg PO BID 10/24/19 12/23/20 History sustained-release (Wellbutrin SR) cholecalciferol (vitamin D3) 25 0 mcg PO QAM 10/24/19 12/23/20 History mcg (1,000 unit) tablet (Vitamin D3) magnesium oxide 400 mg PO QAM 10/24/19 12/23/20 History multivitamin (Daily Multi-Vitamin) 1 tab PO QAM 10/24/19 12/23/20 History omeprazole 20 mg capsule,delayed 20 mg PO QAM 10/24/19 12/23/20 History release venlafaxine 150 mg 150 mg PO QAM 10/24/19 12/23/20 History capsule,extended release 24 hr (Effexor XR) zinc 50 mg tablet 50 mg PO QAM 10/24/19 12/23/20 History mirabegron 50 mg tablet,extended 50 mg PO QAM 12/23/20 12/23/20 History release 24 hr (Myrbetriq) Past Med/Surg History Medical History Anxiety and depression GERD (gastroesophageal reflux disease) MS (multiple sclerosis) Tobacco use Surgical History History of section Family History Other Hypertension Lung cancer Ovarian cancer Social History Smoking Status: Current every day smoker Tobacco Type: Cigarettes Cigarettes Per Day: 1; Second Hand Exposure: No; Do You Dip or Chew Tobacco: No; Tobacco Cessation Education Requested by Patient: No Hx Alcohol Use: Yes Alcohol type: wine Hx Substance Use: No Preferred Language: Bengali Communication Ability: Effective Chairman President And Chief Executive Officer Required: No Beliefs That Will Affect Care: None Current Living Situation: Spouse Current Living Situation Comment: with Other Information That Helps Us Care for You: No Feels Safe at Home: Yes Safety Concerns: Feels Safe At This Time Assistive Devices: Cane Review of Systems Review of Systems: All systems reviewed & are unremarkable except as noted in HPI & below Physical Exam Physical Exam: General: no distress, overweight Head: normocephalic, atraumatic Eyes: conjunctiva non-injected, anicteric ENT: normal inspection external ears, nose, mucous membranes moist Neck: supple, trachea midline Lungs: clear, no respiratory distress, no wheezing/rhonchi/rales CV: RRR, no murmur, no pretibial edema Abd: normal BS, distended, soft, +tenderness to palpation epigastric, RUQ, LUQ without rebound or guarding. no tenderness to palpation RLQ or LLQ Ext: no cyanosis, no calf tenderness Neuro: A&O x 3, no focal deficits noted, normal affect Skin: warm, dry Results & Data Results & Data ([facility]) Vital Signs (Past 12 Hours) Vital Signs Temp Pulse Pulse Resp BP BP Pulse Ox 12/23/20 19:14 93 H 18 139/87 96 12/23/20 16:00 73 20 148/90 H 97 12/23/20 13:01 36.8 C 102 H 18 148/83 H 96 Laboratory Results Short CBC 12/23/20 Range/Units 14:24 WBC 14.71 H (4.8-10.8) K/uL Hgb 13.7 (12.0-16.0) g/dL Hct 40.5 (37-47) % Plt Count 470 H (130-400) K/uL BMP 12/23/20 14:24 Sodium 137 Potassium 4.0 Chloride 106 Carbon Dioxide 28 BUN 11 Creatinine 0.77 Glucose 104 H Calcium 8.9 Liver Function 12/23/20 Range/Units 14:24 Total Bilirubin 0.5 (0.2-1) mg/dl AST 20 (15-37) U/L ALT 31 (12-78) U/L Alkaline Phosphatase 114 (45-117) U/L Albumin 3.5 (3.4-5.0) gm/dl Diagnostic Findings Abdomen/Pelvis CT 12/23/20 14:25 CT SCAN OF THE ABDOMEN AND PELVIS WITH IV CONTRAST CLINICAL HISTORY: Nausea. Generalized abdominal pain. COMPARISON STUDY: No priors. TECHNIQUE: Following the IV administration of 92 cc of Optiray 320, CT scan of the abdomen and pelvis is performed from the lung bases to the proximal femora. Images are reviewed in the axial, sagittal, and coronal planes. IV contrast was administered without complication. A dose lowering technique was utilized adhering to the principles of ALARA. CT DOSE: 610.96 mGy.cm FINDINGS: Lung bases: The heart is normal in size and without pericardial effusion. The lung bases are clear noting dependent atelectasis. A small hiatal hernia is noted. Liver: The contrast-enhanced liver is normal in size, contour, and attenuation. There is no intrahepatic biliary ductal dilatation. The hepatic veins and portal veins are patent. Gallbladder: There is a calcified gallstone. The gallbladder is otherwise normal in appearance. Spleen: Normal in size and attenuation. Pancreas: Unremarkable. Adrenal glands: Unremarkable. Kidneys: The contrast enhanced kidneys are normal in size and without hyd ronephrosis. The kidneys enhance symmetrically. Abdominal vasculature: The abdominal aorta is normal in course and caliber. Bowel: Mild fecal retention is seen throughout the colon. There is no bowel obstruction. There are mildly thick-walled loops of jejunum in the left upper quadrant with surrounding infiltration. This is best seen on images #[id number]. There is mild focal dilatation of the appendix which measures up to 11 mm as seen on image #295. The appendix is filled with fluid, and the wall appears mildly hyperemic. No surrounding inflammation is seen. Peritoneum: No intraperitoneal free air is identified. Trace free fluid is seen in the pelvis. Lymphadenopathy: There are prominent subcentimeter mesenteric and retroperitoneal lymph nodes. Pelvic viscera: The bladder, uterus, and adnexa are normal as visualized. Skeletal structures: No lytic or blastic lesions are seen. IMPRESSION: 1. There are mildly thick-walled loops of jejunum in the left upper quadrant with surrounding infiltration. The appearance suggests a nonspecific enteritis and clinical correlation will be required. 2. There are prominent subcentimeter as enteric and retroperitoneal lymph nodes which may be reactive. 3. There is trace nonspecific free fluid in the pelvis. 4. There is no bowel obstruction. 5. There is focal dilatation of the mid appendix which measures up to 11 mm in diameter. The tip is normal in caliber, and appendix is fluid-filled. No significant surrounding inflammation is identified. Findings are considered low suspicion for acute appendicitis which is not entirely excluded. The appearance is more suggestive of a small mucocele. Clinical correlation will be essential and surgical assessment is recommended. 6. Cholelithiasis. 7. Additional findings as above. Findings were discussed with Dr. Dotson in the emergency department at the time of interpretation. ACT 112: Negative or not required by law. Electronically signed by: Tomasz Otero M.D. 12/23/2020 4:48 PM Chest X-Ray 12/23/20 14:47 XR chest 1V portable CLINICAL HISTORY: Abdominal pain. COMPARISON STUDY: Chest radiograph April 14, 2017. FINDINGS: Lung volumes are normal. Lungs are clear. There is no pneumothorax or pleural effusion. Cardiac size is normal. Mediastinal contours are normal. There is no evidence for pulmonary edema. IMPRESSION: No acute cardiopulmonary findings. ACT 112: Negative or not required by law. Electronically signed by: Jemal Mora M.D. 12/23/2020 2:57 PM Code Status & VTE Plan VTE Prophylaxis Plan VTE Prophylaxis will be ordered: Yes Supervising Physician Co-Signing Physician Notes Attending addendum: Patient seen and examined, care coordinated with Payton Mckeon PA-C. 50-year-old female admitted with abdominal pain, no nausea or vomiting CT abdomen pelvis suggestive of infiltration around appendix without overt evidence of acute appendicitis possible appendiceal mucocele No evidence of sepsis, normal white count, Surgery eval requested appreciate input, nonsurgical management with bowel rest IV fluids and IV antibiotic with Zosyn for now. Please refer to further documentation by Payton Mckeon PA-C for di scussion of other medical issues. Jo Ann Galvez MD
[2020-12-23] MEDS ORDERED: ALPRAZolam 0.5 MG TABLET PO PRN (20:24)
[2020-12-23] MEDS ORDERED: NSS + 20MEQ KCL 20 MEQ/1,000 ML BAG IV SCH (21:00)
[2020-12-23] MEDS ORDERED: KETOROLAC TROMETHAMINE 15 MG/ML VIAL IV PRN (21:37)
[2020-12-23] MEDS: buPROPion SR 100 MG TABCR PO SCH (22:09)
[2020-12-23] MEDS: FAMOTIDINE 20 MG in SYRINGE 3 ML IV SCH (22:09)
[2020-12-23] MEDS: ONDANSETRON INJ 2 MG/ML 2 ML VIAL IV PRN (22:10)
[2020-12-24] MEDS: PIPERACILLIN/TAZOBACTAM 3.375 GM in DEXTROSE 5% 100 ML IV SCH ×3 (01:38→17:54)
[2020-12-24] MEDS: buPROPion SR 100 MG TABCR PO SCH ×2 (08:14→20:47)
[2020-12-24] MEDS: MIRABEGRON ER 25 MG TAB PO SCH (08:14)
[2020-12-24] MEDS: VENLAFAXINE HCL XR 150 MG CAPXR PO SCH (08:15)
[2020-12-24] MEDS: FAMOTIDINE 20 MG in SYRINGE 3 ML IV SCH ×2 (08:15→20:47)
[2020-12-24] MEDS ORDERED: MoRPHine SULFATE 4 MG/ML 1 ML CARP\\VIAL IV STA (09:13)
[2020-12-24] MEDS: ONDANSETRON INJ 2 MG/ML 2 ML VIAL IV PRN (09:21)
--- NOTE | 2020-12-24 09:28 | Hospitalist Progress Note ---
Date of Service December 24, 2020 Assessment & Plan (1) Abdominal pain: Plan: Developed worsening of pain this morning, had an uneventful night, severe right lower quadrant pain with nausea after finishing liquid breakfast Ordered for n.p.o., surgery updated Present on Admission?: Yes (2) Enteritis: (3) Mucocele, appendix: Plan: Pt is 50 y/o F with PMH MS, GERD, anxiety, depression, tobacco use presented to ER with complaint of abdominal pain. Patient states 3 weeks ago started with upper/mid abdominal pain with vomiting then improvement. Recurrent mid abdominal pain started several days ago CT ABD/PELVIS: 1. There are mildly thick-walled loops of jejunum in the left upper quadrant with surrounding infiltration. The appearance suggests a nonspecific enteritis and clinical correlation will be required. 2. There are prominent subcentimeter as enteric and retroperitoneal lymph nodes which may be reactive. 3. There is trace nonspecific free fluid in the pelvis. 4. There is no bowel obstruction. 5. There is focal dilatation of the mid appendix which measures up to 11 mm in diameter. The tip is normal in caliber, and appendix is fluid-filled. No significant surrounding inflammation is identified. Findings are considered low suspicion for acute appendicitis which is not entirely excluded. The appearance is more suggestive of a small mucocele. Clinical correlation will be essential and surgical assessment is recommended. 6. Cholelithiasis. She was seen by general surgery team in the ER, recommend nonsurgical approach with bowel rest IV fluids pain control Started on IV Zosyn for jejunal infiltration noted on CT abdomen pelvis Patient's pain subsided in the ER and was symptomatic overnight, recurrence of pain this morning after eating breakfast of clear liquid. Continue with IV Zosyn, IV fluids, surgery updated, ordered for repeat CBC with differential lactic acid and pro Adalid level Continue to monitor Leukocytosis: Possible due to above, ordered for repeat lab, on IV Zosyn (4) MS (multiple sclerosis): Plan: Not on any current medication. No signs of acute flare. Follows with neurology (5) GERD (gastroesophageal reflux disease): Plan: Continue IV PPI (6) Anxiety and depression: Plan: Stable hold Wellbutrin, Effexor, Xanax for n.p.o. status DVT Prophylaxis -SCDs Full Code as per discussion with pt Follows with Dr Oliver for routine care Admission and Anticipated Discharge Date Admission Date: December 23, 2020 Subjective Seen at bedside, follow-up visit for abdominal pain, appendiceal mucocele. Complains of severe pain on right lower quadrant, after finishing clear liquid breakfast She had an unremarkable night, this morning had no pain or discomfort, was seen by surgery, plan was to be discharged home after advancement of diet Clinic follow-up with surgery for elective procedure if indicated for appendiceal mucocele Patient patient is very uncomfortable with pain, feels nauseous did not had any vomiting episode yet, Patient is ordered strict n.p.o., will be given IV morphine, labs including stat CBC with differential blood count and lactic acid ordered Surgery Dr. Barrientos updated regarding patient's change in clinical status Review of Systems Review of Systems: All systems reviewed & are unremarkable except as noted in Subjective Gastrointestinal: as per Subjective / HPI, + abdominal pain (Right lower quadrant) and + nausea; no vomiting Physical Exam Constitutional: WD/WN, vitals as above + acute distress (Due to abdominal pain) Eyes: PERRL, conjunctivae normal, anicteric sclerae ENMT: external ear and nose normal, oropharynx normal Neck: trachea midline, no thyromegaly Respiratory: normal respiratory effort, lungs clear to auscultation Cardiovascular: RRR, no murmur, no edema Gastrointestinal (Abdomen): Inspection/Auscultation: abdomen normal to inspection and normal bowel sounds Percussion/Palpation: + abdomen tender (On right lower quadrant/positive guarding) and + guarding Musculoskeletal: no cyanosis or clubbing, extremities motor strength 5/5 Skin: no rashes, warm and dry Neurologic: PERRL, EOMI, accommodation nl, no face palsy, no dysarthria Psychiatric: A+Ox3, euthymic affect Results & Data Results & Data ([facility]) Vital Signs (Past 12 Hours) Vital Signs Temp Pulse Pulse Resp BP Pulse Ox 12/24/20 07:42 36.5 C 107 H 16 112/66 92 12/24/20 07:00 105 H 12/24/20 03:35 36.7 C 99 H 20 122/76 94 12/24/20 00:00 36.8 C 92 H 20 123/76 96 12/23/20 22:20 99 H
[2020-12-24 09:35] LABS: Basophils # (auto) 0.02 K/uL (0-0.2); Basophils % (auto) 0.2 %; Eosinophils # (auto) 0.27 K/uL (0-0.5); Eosinophils % (auto) 2.8 %; Hematocrit (blood only) 35.9 % (37-47); Hemoglobin 11.9 g/dL (12.0-16.0); Immature Granulocytes # (auto) 0.02 K/uL (0.00-0.02); Immature Granulocytes % (auto) 0.2 %; Lymphocytes # (auto) 1.63 K/uL (1.2-3.4); Mean Corpuscular Hemoglobin 29.3 pg (25-34); Mean Corpuscular Hgb Conc 33.1 g/dL (32-36); Mean Corpuscular Volume 88.4 fL (80-100); Mean Platelet Volume 9.4 fL (7.4-10.4); Monocytes # (auto) 0.43 K/uL (0.11-0.59); Monocytes % (auto) 4.5 %; Neutrophils # (auto) 7.24 K/uL (1.4-6.5); Neutrophils % (auto) 75.3 %; Platelet Count 438 K/uL (130-400); RDW Coefficient of Variation 14.3 % (11.5-14.5); RDW Standard Deviation 46.4 fL (36.4-46.3); Red Blood Count 4.06 M/uL (4.2-5.4); White Blood Count 9.61 K/uL (4.8-10.8)
[2020-12-24] MEDS ORDERED: HYDROmorphone INJ 0.5 MG/0.5 ML SYR IV PRN (09:53)
[2020-12-24] MEDS ORDERED: HYDROmorphone INJ 1 MG/ML SYRINGE IV PRN (09:53)
[2020-12-24] MEDS ORDERED: LORazepam 1 MG/2 ML VIAL IV PRN (09:54)
[2020-12-24 09:58] LABS: Albumin Level 3.2 gm/dl (3.4-5.0); BUN Creatinine Ratio 7.8 (10-20); Calcium 8.7 mg/dl (8.5-10.1); Creatinine Clr Calc Pharmacy 89.5 ml/min; Est GFR (Non-African American) 82.9 ml/min; Potassium 3.7 mmol/L (3.5-5.1)
[2020-12-24 10:01] LABS: Albumin Globulin Ratio 0.9 (0.9-2); Bilirubin,Total 0.4 mg/dl (0.2-1); Globulin 3.4 gm/dl (2.5-4.0); Total Protein 6.6 gm/dl (6.4-8.2)
--- NOTE | 2020-12-24 10:05 | Surgery Progress Note ---
Date of Service December 24, 2020 Assessment & Plan (1) Abdominal pain: Plan: I favor diagnostic laparoscopy with appendectomy We are going to have to take her appendix at some point because of its potential mucocele We will attempt to assess her small and large bowel She will be kept n.p.o. continue antibiotics and give analgesics as needed We will proceed with laparoscopic appendectomy with diagnostic laparoscopy Admission and Anticipated Discharge Date Admission Date: December 23, 2020 Subjective Patient having more abdominal pain appears to be more right lower quadrant and central Requiring some IV analgesics Physical Exam Physical Exam: Patient does have significant pain on the right side Results & Data ([facility]) Vital Signs (Past 12 Hours) Vital Signs Temp Pulse Pulse Resp BP Pulse Ox 12/24/20 03:35 36.7 C 99 H 20 122/76 94 12/24/20 00:00 36.8 C 92 H 20 123/76 96 12/23/20 22:20 99 H 12/23/20 20:45 88 12/23/20 20:25 36.8 C 98 H 18 142/79 H 97 PG Care Time/CCT Total # of Minutes Spent Total Time Spent with Patient: Total time spent is greater than 50% in coordination of care (as documented) at patient's floor/unit and/or counseling patient: Coding Level of Care Code None Diagnoses Abdominal pain R10.9
--- NOTE | 2020-12-24 10:06 | Communication Note ---
Date of Service: December 24, 2020 She continues to have severe abdominal pain, episode of some vomiting, Reevaluated by Dr. Barrientos patient will be taken to the OR today for appendectomy Repeat lab reviews, resolution of leukocytosis, lactic acid level noted elevated 2.9 Jo Ann Galvez MD
[2020-12-24] MEDS ORDERED: BUPIVACAINE 0.5 % 5 MG/1 ML MPF 30ML VIAL ONE (10:22)
--- NOTE | 2020-12-24 10:52 | Anesthesiology Consultation ---
Date of Service December 24, 2020 Assessment & Plan Chart Review Chart Review: Acceptable Risk for Surgery Consults Requested none History Surgery Operation Date: 12/24/20 10:00 Proposed Procedures p Laparoscopic Appendectomy - Paul Barrientos MD, FACS Height/Weight Height: 5 ft 5 in Weight: 89.2 kg Allergies Allergy/AdvReac Type Severity Reaction Status Date / Time glatiramer (copolymer 1) AdvReac Severe Diarrhea Verified 12/23/20 14:50 [From Copaxone] topiramate AdvReac Severe Patient Unverified 12/23/20 14:56 stated she has a psychotic episode Medications Home Medications Medication Instructions Recorded Confirmed Last Taken alprazolam 0.5 mg tablet (Xanax) 0.5 mg PO TID PRN 10/24/19 12/23/20 Unknown bupropion HCl 100 mg tablet,12 hr 100 mg PO BID 10/24/19 12/23/20 12/23/20 sustained-release (Wellbutrin SR) cholecalciferol (vitamin D3) 25 0 mcg PO QAM 10/24/19 12/23/20 12/23/20 mcg (1,000 unit) tablet (Vitamin D3) magnesium oxide 400 mg PO QAM 10/24/19 12/23/20 12/23/20 multivitamin (Daily Multi-Vitamin) 1 tab PO QAM 10/24/19 12/23/20 12/23/20 omeprazole 20 mg capsule,delayed 20 mg PO QAM 10/24/19 12/23/20 12/23/20 release venlafaxine 150 mg 150 mg PO QAM 10/24/19 12/23/20 12/23/20 capsule,extended release 24 hr (Effexor XR) zinc 50 mg tablet 50 mg PO QAM 10/24/19 12/23/20 12/23/20 mirabegron 50 mg tablet,extended 50 mg PO QAM 12/23/20 12/23/20 12/23/20 release 24 hr (Myrbetriq) Active Medications Generic Name Dose Route Start Last Admin Trade Name Freq PRN Reason Stop Dose Admin Bupropion HCl 100 mg 12/23/20 21:00 12/24/20 08:14 Bupropion Sr 100 Mg Tabcr PO 01/22/21 20:59 100 mg BID MOHSEN Administration Hydromorphone HCl 0.5 mg 12/24/20 09:53 12/24/20 10:27 Hydromorphone Inj 0.5 Mg/0.5 Ml Syr IV 01/07/21 09:52 0.5 mg Q2HWA PRN Administration Pain Piperacillin Sod/Tazobactam 115 mls @ 28.75 mls/hr 12/24/20 00:00 12/24/20 09:22 Sod 3.375 gm/ Dextrose IV 01/03/21 00:00 28.8 mls/hr Q8H MOHSEN Administration Protocol Famotidine 20 mg/ Syringe 5 mls @ 2.5 mls/min 12/23/20 21:00 12/24/20 08:15 IV 01/22/21 20:59 2.5 mls/min BID MOHSEN Administration Lorazepam 1 mg in 2 mls @ 2 mls/min 12/24/20 09:54 12/24/20 10:36 Ativan IV 01/23/21 09:53 2 mls/min Q4H PRN Administration Anxiety Mirabegron 50 mg 12/24/20 09:00 12/24/20 08:14 Mirabegron Er 25 Mg Tab PO 01/23/21 08:59 50 mg QAM MOHSEN Administration Ondansetron HCl 4 mg 12/23/20 18:45 12/24/20 09:21 Ondansetron Inj 2 Mg/Ml 2 Ml Vial IV 01/22/21 18:44 4 mg Q6H PRN Administration Nausea Venlafaxine HCl 150 mg 12/24/20 09:00 12/24/20 08:15 Venlafaxine Hcl Xr 150 Mg Capxr PO 01/23/21 08:59 150 mg QAM MOHSEN Administration Past Medical History Medical History Anxiety and depression GERD (gastroesophageal reflux disease) MS (multiple sclerosis) Tobacco use Past Family History Family History Other Hypertension Lung cancer Ovarian cancer Past Surgical History Surgical History History of section Social History Smoking Status: Current every day smoker tobacco type: cigarettes Smoking cigarettes per day: 1 Do You Dip or Chew Tobacco: No Hx Alcohol Use: Yes Alcohol type: wine alcohol intake frequency: a few times a month Hx Substance Use: No Physical Exam Vital Signs Last Vital Signs Temp 36.5 C 12/24/20 07:42 Pulse 107 H 12/24/20 07:42 Resp 16 12/24/20 07:42 BP 112/66 12/24/20 07:42 Pulse Ox 92 12/24/20 07:42 Testing Laboratory Results 12/24/20 09:24 12/24/20 09:24
[2020-12-24] MEDS ORDERED: ONDANSETRON INJ 2 MG/ML 2 ML VIAL IV PRN (10:54)
[2020-12-24] MEDS ORDERED: ATROPINE SULFATE 0.1 MG/ML 10ML SYR IV PRN (10:54)
[2020-12-24] MEDS ORDERED: HYDROmorphone INJ 2 MG/ML SYR/VIAL IV PRN (10:54)
[2020-12-24] MEDS ORDERED: fentaNYL citrate 100 MCG/2 ML VIAL IV PRN (10:54)
[2020-12-24] MEDS ORDERED: ePHEDrine sulfate 50 MG/ML AMP IV PRN (10:54)
[2020-12-24] MEDS ORDERED: PHENYLEPHRINE HCL 10 MG/ML VIAL ONE (12:51)
[2020-12-24] MEDS ORDERED: NEOSTIGMINE METHYLSULFATE 1 MG/ML 10ML VIAL ONE (12:51)
[2020-12-24] MEDS ORDERED: KETOROLAC 30 MG/ML VIAL ONE (12:51)
[2020-12-24] MEDS ORDERED: GLYCOPYRROLATE 0.2 MG/ML VIAL ONE (12:51)
[2020-12-24] MEDS ORDERED: ACETAMINOPHEN 1,000 MG/100 ML VIAL IV ONE (12:59)
--- NOTE | 2020-12-24 12:59 | Post Operative Brief Note ---
PG Immediate Post Op with CF Date of Surgery December 24, 2020 Pre & Post Diagnosis Operation Date: 12/24/20 10:00 Pre-Op Diagnosis: Abdominal pain Post-Op Diagnosis: Abdominal pain, I identified the patient and participated in the time-out.: Yes Procedure Operation Date: 12/24/20 10:00 Actual Procedures p Laparoscopic Appendectomy - Paul Barrientos MD, FACS Excision of Meckel's diverticulum Surgeon Paul Barrientos MD, FACS Special Services Coordinator nurses Estimated Blood Loss 20 Findings See Below (Dilated appendix with the appearance of a mucocele and a Meckel's diverticulum with an abnormal tip) Specimens Specimen Description: A. appendix B. ileal mass Drains Moses Catheter
[2020-12-24] MEDS ORDERED: MIDAZOLAM HCL 1 MG/ML 2ML VIAL ONE (13:21)
[2020-12-24] MEDS ORDERED: fentaNYL citrate 100 MCG/2 ML VIAL ONE (13:21)
--- NOTE | 2020-12-24 14:00 | Anesthesiology Progress Note ---
Date of Service December 24, 2020 Anesthesia Post Procedure Vital Signs Vital Signs: Temp Pulse Pulse Pulse Resp BP BP 12/24/20 13:50 36.5 C 97 H 16 120/81 12/24/20 13:40 36.5 C 107 H 15 131/86 12/24/20 13:30 93 H 18 107/60 12/24/20 13:20 93 H 20 102/72 12/24/20 13:12 36.7 C 100 H 16 107/86 12/24/20 07:42 36.5 C 107 H 16 112/66 12/24/20 07:00 105 H 12/24/20 03:35 36.7 C 99 H 20 122/76 12/24/20 00:00 36.8 C 92 H 20 123/76 12/23/20 22:20 99 H 12/23/20 20:45 88 12/23/20 20:25 36.8 C 98 H 18 142/79 H 12/23/20 19:14 93 H 18 139/87 12/23/20 16:00 73 20 148/90 H Pulse Ox 12/24/20 13:50 96 12/24/20 13:40 96 12/24/20 13:30 94 12/24/20 13:20 93 12/24/20 13:12 93 12/24/20 07:42 92 12/24/20 07:00 12/24/20 03:35 94 12/24/20 00:00 96 12/23/20 22:20 12/23/20 20:45 12/23/20 20:25 97 12/23/20 19:14 96 12/23/20 16:00 97 Pain Intensity Bilateral Abdomen: Pain Intensity: 7 Transfer of Care Handoff Completed per policy Notes Mental Status: alert / awake / arousable and participated in evaluation Patient Amnestic to Procedure: Yes Nausea / Vomiting: adequately controlled Pain: adequately controlled Airway Patency, RR, SpO2: stable & adequate BP & HR: stable & adequate Hydration State: stable & adequate Anesthetic Complications: no major complications apparent
[2020-12-24] MEDS ORDERED: PROMETHAZINE HCL 25 MG in SODIUM CHLORIDE 0.9% 50 ML IV PRN (14:26)
[2020-12-24] MEDS ORDERED: PROMETHAZINE HCL 12.5 MG in SODIUM CHLORIDE 0.9% 50 ML IV PRN (14:26)
--- NOTE | 2020-12-24 21:42 | Operative Report (OR) ---
DATE OF OPERATION: 12/24/2020 PROCEDURE: Laparoscopic appendectomy and excision of Meckel's diverticulum. SURGEON: Paul Barrientos MD ROOM CLEANER: Nurses. ANESTHESIA: General. DESCRIPTION OF PROCEDURE: The patient was brought in to the operating room and placed on the operati ng table in supine position. Her abdomen was prepped and draped in the usual fashion. Pneumatic sto ckings, Moses catheter, orogastric tube were placed. Incision was made above the umbilicus using 0.5 % plain Marcaine to anesthetize all incisions. An 11 mm port was placed at this level. Then, under visualization, two 5 mm ports were placed, one suprapubic, one left lower quadrant. On observation, t he cecum did have adhesions to the lateral sidewall and the appendix was adherent to the cecum, but I was able to visualize the appendix. The base of the appendix appeared to be somewhat thickened and inflamed. There was an area of dilated appendix consistent with a mucocele. Distal appendix appeare d normal. With some difficulty, the base of the appendix was transected and then the appendix was di ssected away from the cecum using an Endo-DELMA to transect the tissue. Appendix was placed in an Endo bag and then removed through the upper mid port site. At this point, I was examining the small bowel and colon. The colon appeared to be normal. There was some dilation of the cecum; however, there w as no inflammation. The small bowel did show an area within the ileum, what appeared to be a Meckel' s diverticulum with an abnormal tip, somewhat mass-like and appeared to be somewhat inflamed. This w as transected at the stalk using Endo-DELMA stapler with good result. After appropriate irrigation, he mostasis, all ports were removed. Fascia at the umbilicus closed using interrupted 0 Vicryl suture. Subcutaneous tissue reapproximated using 0 Vicryl suture and the skin reapproximated using subcuticu lar 4-0 Monocryl and Dermabond. Patient was transferred to recovery room in stable condition. Job ID: [id number]
[2020-12-25] MEDS: PIPERACILLIN/TAZOBACTAM 3.375 GM in DEXTROSE 5% 100 ML IV SCH ×3 (01:41→17:38)
[2020-12-25 06:41] LABS: Basophils # (auto) 0.02 K/uL (0-0.2); Basophils % (auto) 0.2 %; Eosinophils # (auto) 0.01 K/uL (0-0.5); Eosinophils % (auto) 0.1 %; Hemoglobin 11.5 g/dL (12.0-16.0); Immature Granulocytes # (auto) 0.02 K/uL (0.00-0.02); Immature Granulocytes % (auto) 0.2 %; Lymphocytes # (auto) 1.76 K/uL (1.2-3.4); Lymphocytes % (auto) 13.7 %; Mean Corpuscular Hgb Conc 32.9 g/dL (32-36); Mean Corpuscular Volume 88.2 fL (80-100); Mean Platelet Volume 9.3 fL (7.4-10.4); Monocytes # (auto) 0.72 K/uL (0.11-0.59); Monocytes % (auto) 5.6 %; Neutrophils # (auto) 10.28 K/uL (1.4-6.5); Neutrophils % (auto) 80.2 %; Platelet Count 437 K/uL (130-400); RDW Coefficient of Variation 14.2 % (11.5-14.5); RDW Standard Deviation 45.8 fL (36.4-46.3); Red Blood Count 3.97 M/uL (4.2-5.4); White Blood Count 12.81 K/uL (4.8-10.8)
[2020-12-25 07:08] LABS: Albumin Level 3.2 gm/dl (3.4-5.0); BUN Creatinine Ratio 7.3 (10-20); Calcium 8.8 mg/dl (8.5-10.1); Creatinine Clr Calc Pharmacy 88.2 ml/min; Est GFR (African American) 93.3 ml/min; Est GFR (Non-African American) 80.5 ml/min; Potassium 3.8 mmol/L (3.5-5.1)
[2020-12-25 07:10] LABS: Albumin Globulin Ratio 0.9 (0.9-2); Bilirubin,Total 0.5 mg/dl (0.2-1); Globulin 3.6 gm/dl (2.5-4.0); Phosphorus 3.4 mg/dl (2.5-4.9); Total Protein 6.8 gm/dl (6.4-8.2)
--- NOTE | 2020-12-25 07:23 | Surgery Progress Note ---
Date of Service December 25, 2020 Assessment & Plan (1) S/P laparoscopic appendectomy: Plan: Also laparoscopic removal of Meckel's diverticulum Patient also has mild dilatation of her cecum which may be a cecal bascule She is hungry however I only want her to have clear liquids today Continue antibiotics for now Mobilization with walking in the hallway Possible discharge tomorrow Admission and Anticipated Discharge Date Admission Date: December 23, 2020 Results & Data ([facility]) Vital Signs (Past 12 Hours) Vital Signs Temp Pulse Pulse Resp BP BP Pulse Ox 12/25/20 02:53 37 C 100 H 18 116/60 93 12/24/20 23:02 37.2 C 99 H 18 129/70 92 12/24/20 22:20 105 H 12/24/20 19:52 37.1 C 100 H 24 122/76 97 PG Care Time/CCT Total # of Minutes Spent Total Time Spent with Patient: Total time spent is greater than 50% in coordination of care (as documented) at patient's floor/unit and/or counseling patient: Coding Level of Care Code None Diagnoses S/P laparoscopic appendectomy Z90.49
[2020-12-25] MEDS ORDERED: SIMETHICONE 80 MG CHEW PO PRN (08:59)
[2020-12-25] MEDS: VENLAFAXINE HCL XR 150 MG CAPXR PO SCH (09:00)
[2020-12-25] MEDS: MIRABEGRON ER 25 MG TAB PO SCH (09:00)
[2020-12-25] MEDS: buPROPion SR 100 MG TABCR PO SCH ×2 (09:00→20:07)
[2020-12-25] MEDS: FAMOTIDINE 20 MG in SYRINGE 3 ML IV SCH ×2 (10:12→20:09)
--- NOTE | 2020-12-25 10:55 | Hospitalist Progress Note ---
Date of Service December 25, 2020 Assessment & Plan (1) Abdominal pain: Plan: Status post laparoscopic appendectomy yesterday by Dr. Barrientos Postoperative day 1 Patient doing remarkably well, Abdominal pain discomfort has resolved, feels hungry, No nausea or vomiting, ordered for clear liquid diet by surgery Appreciate input from surgery consult, will given complicated nature of procedure including excision of Meckel's diverticulum, abnormalities noted on cecum recommends slow advancement in diet, Patient reports of abdominal bloating and gas symptoms Due to post procedure, Patient is asked to ambulate increase activity as tolerated, Avoid Gas-X, MiraLAX etc, bowel rest as much as possible (2) Enteritis: (3) Mucocele, appendix: Plan: Pt is 50 y/o F with PMH MS, GERD, anxiety, depression, tobacco use presented to ER with complaint of abdominal pain. Patient states 3 weeks ago started with upper/mid abdominal pain with vomiting then improvement. Recurrent mid abdominal pain started several days ago CT ABD/PELVIS: 1. There are mildly thick-walled loops of jejunum in the left upper quadrant with surrounding infiltration. The appearance suggests a nonspecific enteritis and clinical correlation will be required. 2. There are prominent subcentimeter as enteric and retroperitoneal lymph nodes which may be reactive. 3. There is trace nonspecific free fluid in the pelvis. 4. There is no bowel obstruction. 5. There is focal dilatation of the mid appendix which measures up to 11 mm in diameter. The tip is normal in caliber, and appendix is fluid-filled. No significant surrounding inflammation is identified. Findings are considered low suspicion for acute appendicitis which is not entirely excluded. The appearance is more suggestive of a small mucocele. Clinical correlation will be essential and surgical assessment is recommended. 6. Cholelithiasis. Status post laparoscopic appendectomy 12/24/2020 Appreciate surgery input highly Leukocytosis: Due to above, improved, continue Zosyn for now (4) MS (multiple sclerosis): Plan: Not on any current medication. No signs of acute flare. Follows with neurology (5) GERD (gastroesophageal reflux disease): Plan: On PPI (6) Anxiety and depression: Plan: Stable Continue home meds DVT Prophylaxis -SCDs Full Code as per discussion with pt Follows with Dr Oliver for routine care Disposition: Expected to be discharged home in next few days when medically stable Admission and Anticipated Discharge Date Admission Date: December 23, 2020 Subjective Patient seen at bedside, doing much better today, walking in the room Does not have any complaint of abdominal pain, no nausea vomiting, had not had any bowel movement since surgery Complains of bloating sensation, gas distention No fever or chills stable vitals Review of Systems Review of Systems: All systems reviewed & are unremarkable except as noted in Subjective Physical Exam Constitutional: WD/WN, vitals as above + acute distress (Due to abdominal pain) Eyes: PERRL, conjunctivae normal, anicteric sclerae ENMT: external ear and nose normal, oropharynx normal Neck: trachea midline, no thyromegaly Respiratory: normal respiratory effort, lungs clear to auscultation Cardiovascular: RRR, no murmur, no edema Gastrointestinal (Abdomen): Inspection/Auscultation: normal bowel sounds and + abdominal surgical incision (laparoscopy incision on umbilical and left lower quadrant,) Percussion/Palpation: abdomen soft; abdomen nontender Laparoscopic incision site well-healed, no drainage no surrounding erythema, Musculoskeletal: no cyanosis or clubbing, extremities motor strength 5/5 Skin: no rashes, warm and dry Neurologic: PERRL, EOMI, accommodation nl, no face palsy, no dysarthria Psychiatric: A+Ox3, euthymic affect Results & Data Results & Data ([facility]) Vital Signs (Past 12 Hours) Vital Signs Temp Pulse Pulse Resp BP BP Pulse Ox 12/25/20 07:50 96 H 12/25/20 07:47 36.7 C 96 H 16 124/81 96 12/25/20 02:53 37 C 100 H 18 116/60 93 12/24/20 23:02 37.2 C 99 H 18 129/70 92
[2020-12-26] MEDS: PIPERACILLIN/TAZOBACTAM 3.375 GM in DEXTROSE 5% 100 ML IV SCH ×2 (01:36→10:09)
[2020-12-26 08:01] LABS: Basophils # (auto) 0.03 K/uL (0-0.2); Basophils % (auto) 0.4 %; Eosinophils # (auto) 0.15 K/uL (0-0.5); Hematocrit (blood only) 34.9 % (37-47); Hemoglobin 11.5 g/dL (12.0-16.0); Immature Granulocytes # (auto) 0.01 K/uL (0.00-0.02); Immature Granulocytes % (auto) 0.1 %; Lymphocytes % (auto) 30.3 %; Mean Corpuscular Hemoglobin 29.2 pg (25-34); Mean Corpuscular Volume 88.6 fL (80-100); Mean Platelet Volume 9.1 fL (7.4-10.4); Monocytes # (auto) 0.45 K/uL (0.11-0.59); Monocytes % (auto) 5.9 %; Neutrophils # (auto) 4.64 K/uL (1.4-6.5); Neutrophils % (auto) 61.3 %; Platelet Count 390 K/uL (130-400); RDW Coefficient of Variation 14.3 % (11.5-14.5); RDW Standard Deviation 46.8 fL (36.4-46.3); Red Blood Count 3.94 M/uL (4.2-5.4); White Blood Count 7.58 K/uL (4.8-10.8)
[2020-12-26] MEDS: buPROPion SR 100 MG TABCR PO SCH (08:21)
[2020-12-26] MEDS: VENLAFAXINE HCL XR 150 MG CAPXR PO SCH (08:21)
[2020-12-26] MEDS: MIRABEGRON ER 25 MG TAB PO SCH (08:21)
--- NOTE | 2020-12-26 08:22 | Surgery Progress Note ---
Date of Service December 26, 2020 Assessment & Plan (1) S/P laparoscopic appendectomy: Plan: Also excision of Meckel's diverticulum I again reviewed her CAT scan with the radiologist-she has a mildly dilated cecum but I do not see any other significant abnormality She did have some small bowel thickening consistent with enteritis but this did not appear to be right-sided Her problem may have come from constipation I have advance her to full liquids I think she can be discharged home from my standpoint I would have her follow-up with Izaiah HUITRON I will follow her up in 2 weeks in the office She should limit her activities for approximately 3 weeks She apparently does not work and is on disability Admission and Anticipated Discharge Date Admission Date: December 23, 2020 Results & Data ([facility]) Vital Signs (Past 12 Hours) Vital Signs Temp Pulse Pulse Pulse Resp BP BP 12/26/20 08:17 36.5 C 87 18 146/83 H 12/26/20 07:07 83 12/26/20 03:30 36.4 C L 93 H 18 108/69 12/26/20 00:02 94 H 12/25/20 23:40 36.8 C 100 H 18 119/68 Pulse Ox 12/26/20 08:17 92 12/26/20 07:07 12/26/20 03:30 96 12/26/20 00:02 12/25/20 23:40 95 PG Care Time/CCT Total # of Minutes Spent Total Time Spent with Patient: Total time spent is greater than 50% in coordination of care (as documented) at patient's floor/unit and/or counseling p atient: Coding Level of Care Code None Diagnoses S/P laparoscopic appendectomy Z90.49
[2020-12-26] MEDS: FAMOTIDINE 20 MG in SYRINGE 3 ML IV SCH (08:23)
[2020-12-26 08:36] LABS: BUN Creatinine Ratio 9.8 (10-20); Calcium 8.8 mg/dl (8.5-10.1); Creatinine Clr Calc Pharmacy 84.7 ml/min; Est GFR (African American) 88.2 ml/min; Est GFR (Non-African American) 76.1 ml/min; Potassium 3.7 mmol/L (3.5-5.1)
--- NOTE | 2020-12-26 11:13 | Hospitalist Progress Note ---
Date of Service December 26, 2020 Assessment & Plan (1) Abdominal pain: Plan: Status post laparoscopic appendectomy with excision of Meckel's diverticulum by Dr. Barrientos. Postoperative day 2 Patient doing remarkably well, Abdominal pain discomfort has resolved, tolerating diet. Appreciate input from surgery, patient CT abdomen pelvis showed mildly dilated cecum Some small bowel wall thickening consistent with enteritis Comments patient will be discharged with p.o. antibiotic: Was on IV Zosyn, changed to p.o. Augmentin for 5 more days Patient is asked to take probiotic while taking antibiotic to prevent C. difficile Needs outpatient colonoscopy and GI follow-up Surgery follow-up 2 weeks postop Fiber diet for 2 weeks-information for low fiber diet added with DC instruction Patient is asked to limit activities for approximately 3 weeks Stable to be discharged home today Chronic constipation: Take regular bowel regimen with MiraLAX, can utilize additional Colace Dulcolax ATC [id number] GI follow-up for screening colonoscopy (2) Enteritis: Plan: P.o. Augmentin for 5 more days (3) Mucocele, appendix: Plan: Pt is 50 y/o F with PMH MS, GERD, anxiety, depression, tobacco use presented to ER with complaint of abdominal pain. Patient states 3 weeks ago started with upper/mid abdominal pain with vomiting then improvement. Recurrent mid abdominal pain started several days ago CT ABD/PELVIS: 1. There are mildly thick-walled loops of jejunum in the left upper quadrant with surrounding infiltration. The appearance suggests a nonspecific enteritis and clinical correlation will be required. 2. There are prominent subcentimeter as enteric and retroperitoneal lymph nodes which may be reactive. 3. There is trace nonspecific free fluid in the pelvis. 4. There is no bowel obstruction. 5. There is focal dilatation of the mid appendix which measures up to 11 mm in diameter. The tip is normal in caliber, and appendix is fluid-filled. No significant surrounding inflammation is identified. Findings are considered low suspicion for acute appendicitis which is not entirely excluded. The appearance is more suggestive of a small mucocele. Clinical correlation will be essential and surgical assessment is recommended. 6. Cholelithiasis. Status post laparoscopic appendectomy Meckel's diverticulum excision on 12/24/2020 Stable to be discharged home today Leukocytosis: Due to above, Resolved, discharged on p.o. Augmentin for 5 more days (4) MS (multiple sclerosis): Plan: Not on any current medication. No signs of acute flare. Follows with neurology (5) GERD (gastroesophageal reflux disease): Plan: On PPI (6) Anxiety and depression: Plan: Stable Continue home meds DVT Prophylaxis -SCDs Full Code as per discussion with pt She is stable to be discharged home today Admission and Anticipated Discharge Date Admission Date: December 23, 2020 Subjective Follow-up visit for acute abdominal pain status post appendectomy. Patient has been doing very well since yesterday, no complaint of abdominal pain, walking in the room, Had normal bowel movement, tolerating diet no nausea vomiting or discomfort No complaint of abdominal bloating No fever or chills, no GI or issues. No cough or shortness of breath Very pleasant, feels that she is ready to be discharged home today Patient was seen by surgery Dr. Barrientos this morning, patient is clinically stable to be discharged home, will need 5 more days of antibiotic, Recommends clinic follow-up with surgery in 2 weeks postop, and GI follow-up for outpatient colonoscopy Review of Systems Review of Systems: All systems reviewed & are unremarkable except as noted in Subjective Physical Exam Constitutional: WD/WN, vitals as above well developed; no acute distress (Very pleasant and comfortable walking around) Eyes: PERRL, conjunctivae normal, anicteric sclerae ENMT: external ear and nose normal, oropharynx normal Neck: trachea midline, no thyromegaly Respiratory: normal respiratory effort, lungs clear to auscultation Cardiovascular: RRR, no murmur, no edema Gastrointestinal (Abdomen): Inspection/Auscultation: normal bowel sounds and + abdominal surgical incision (laparoscopy incision on umbilical and left lower quadrant,) Percussion/Palpation: abdomen soft; abdomen nontender Musculoskeletal: no cyanosis or clubbing, extremities motor strength 5/5 Skin: no rashes, warm and dry Neurologic: PERRL, EOMI, accommodation nl, no face palsy, no dysarthria Psychiatric: A+Ox3, euthymic affect Results & Data Results & Data ([facility]) Vital Signs (Past 12 Hours) Vital Signs Temp Pulse Pulse Pulse Resp BP BP 12/26/20 10:46 36.5 C 87 93 H 18 108/69 146/83 H 12/26/20 08:17 36.5 C 87 18 146/83 H 12/26/20 07:07 83 12/26/20 03:30 36.4 C L 93 H 18 108/69 12/26/20 00:02 94 H 12/25/20 23:40 36.8 C 100 H 18 119/68 Pulse Ox 12/26/20 10:46 92 12/26/20 08:17 92 12/26/20 07:07 12/26/20 03:30 96 12/26/20 00:02 12/25/20 23:40 95
--- NOTE | 2020-12-26 11:16 | Discharge Summary ---
Date of Service December 26, 2020 Admission HPI Per Admitting Provider Pt is 50 y/o F with PMH MS, GERD, anxiety, depression, tobacco use presented to ER with complaint of abdominal pain. Patient states 3 weeks ago started with upper/mid and lower abdominal pain. Also reports some low back discomfort. Describes abdominal pain as burning sensation with intermittent stabbing sensation. States at that time had several episodes of vomiting. Patient states was taking Pepto-Bismol and symptoms seem to be mildly improved. Reports several days ago started with abdominal pain and low back aching again. Denies any vomiting or diarrhea this week. Patient reports been several days without BM. She feels abdominal bloating. Has been taking Pepto-Bismol and noticed stools were darker in coloration. Denies hematochezia, hematemesis, fever, chills. Has chronic intermittent SYED, denies any changes. Denies diaphoresis, dizziness, syncope, vision changes, neck pain, CP, SOB, orthopnea, palpitations, cough, sore throat, choking, otalgia, rhinorrhea, paresthesias, weakness, extremity weakness, extremity edema, rashes, urinary symptoms. In ER CT ABD/PELVIS with mildly thick-walled loops of jejunum in the left upper quadrant with surrounding infiltration and focal dilatation of the mid appendix which measures up to 11 mm in diameter. The tip is normal in caliber, and appendix is fluid-filled. No significant surrounding inflammation is identified. Findings are considered low suspicion for acute appendicitis which is not entirely excluded. The appearance is more suggestive of a small mucocele. General surgery saw pt and felt conservative measures at this time with IV antibiotics. Principal Diagnosis S/P laparoscopic appendectomy: excision of Meckel's diverticulum Chronic constipation Discharge Exam Constitutional WD/WN, vitals as above well developed; no acute distress (Very pleasant and comfortable walking around) Eyes PERRL, conjunctivae normal, anicteric sclerae ENMT external ear and nose normal, oropharynx normal Neck trachea midline, no thyromegaly Respiratory normal respiratory effort, lungs clear to auscultation Cardiovascular RRR, no murmur, no edema Gastrointestinal (Abdomen) Inspection/Auscultation: normal bowel sounds and + abdominal surgical incision (laparoscopy incision on umbilical and left lower quadrant,) Percussion/Palpation: abdomen soft; abdomen nontender Musculoskeletal no cyanosis or clubbing, extremities motor strength 5/5 Skin no rashes, warm and dry Neurologic PERRL, EOMI, accommodation nl, no face palsy, no dysarthria Psychiatric A+Ox3, euthymic affect Discharge Data Allergies Allergy/AdvReac Type Severity Reaction Status Date / Time glatiramer (copolymer 1) AdvReac Severe Diarrhea Verified 12/23/20 14:50 [From Copaxone] topiramate AdvReac Severe Patient Unverified 12/23/20 14:56 stated she has a psychotic episode Consultations 12/23/20 17:34 ED Decision to Admit Stat 12/23/20 18:45 Consult General Surgery Routine Procedures Performed Operation Date: 12/24/20 10:00 Actual Procedures p Laparoscopic Appendectomy - Paul Barrientos MD, FACS Ordered Studies 12/23/20 14:25 CT abd pelvis IV con only Stat Hospital Course (1) Abdominal pain: Status post laparoscopic appendectomy with excision of Meckel's dive rticulum by Dr. Barrientos. Postoperative day 2 Patient doing remarkably well, Abdominal pain discomfort has resolved, tolerating diet. Appreciate input from surgery, patient CT abdomen pelvis showed mildly dilated cecum Some small bowel wall thickening consistent with enteritis Comments patient will be discharged with p.o. antibiotic: Was on IV Zosyn, changed to p.o. Augmentin for 5 more days Patient is asked to take probiotic while taking antibiotic to prevent C. difficile Needs outpatient colonoscopy and GI follow-up Surgery follow-up 2 weeks postop Fiber diet for 2 weeks-information for low fiber diet added with DC instruction Patient is asked to limit activities for approximately 3 weeks Stable to be discharged home today Chronic constipation: Take regular bowel regimen with MiraLAX, can utilize additional Colace Dulcolax ATC [id number] GI follow-up for screening colonoscopy (2) Enteritis: P.o. Augmentin for 5 more days (3) Mucocele, appendix: Pt is 50 y/o F with PMH MS, GERD, anxiety, depression, tobacco use presented to ER with complaint of abdominal pain. Patient states 3 weeks ago started with upper/mid abdominal pain with vomiting then improvement. Recurrent mid abdominal pain started several days ago CT ABD/PELVIS: 1. There are mildly thick-walled loops of jejunum in the left upper quadrant with surrounding infiltration. The appearance suggests a nonspecific enteritis and clinical correlation will be required. 2. There are prominent subcentimeter as enteric and retroperitoneal lymph nodes which may be reactive. 3. There is trace nonspecific free fluid in the pelvis. 4. There is no bowel obstruction. 5. There is focal dilatation of the mid appendix which measures up to 11 mm in diameter. The tip is normal in caliber, and appendix is fluid-filled. No significant surrounding inflammation is identified. Findings are considered low suspicion for acute appendicitis which is not entirely excluded. The appearance is more suggestive of a small mucocele. Clinical correlation will be essential and surgical assessment is recommended. 6. Cholelithiasis. Status post laparoscopic appendectomy Meckel's diverticulum excision on 12/24/2020 Stable to be discharged home today Leukocytosis: Due to above, Resolved, discharged on p.o. Augmentin for 5 more days (4) MS (multiple sclerosis): Not on any current medication. No signs of acute flare. Follows with neurology (5) GERD (gastroesophageal reflux disease): On PPI (6) Anxiety and depression: Stable Continue home meds DVT Prophylaxis -SCDs Full Code as per discussion with pt She is stable to be discharged home today Total Time Total Time Spent Total Time Spent (In Minutes): 40 minutes Discharge Plan Discharge Items Patient Disposition: Home - Self-Care Reason For Visit: ABDOMINAL PAIN Discharge Diagnosis: S/P laparoscopic appendectomy: excision of Meckel's diverticulum Chronic constipation Activity: Per Instructions section Activity Comment: light activity for 4 weeks Lifting: No more than 10 pounds Bathing Comment: may shower; no soaking in tubs/pools Sexual Activity: When tolerated Exercise/Sports: Wait until after follow-up appointment Exercise Comment: wait 4 weeks Driving/Machine Use: no driving while taking narcotics for pain Non-emergency contact: Primary Care Provider and Surgeon Call non-emergency contact if: you have any medication questions, your symptoms worsen, your pain is not controlled, your pain is worsening, your pain is concerning for you, you have a fever, your temperature is above 101.5, your wound has increased redness, your wound has increased drainage and your wound pain has increased Follow-up/Referrals: Paul Barrientos MD, FACS [Physician] - Kalpana Brown MD [Outside Practitioners] - (Date & Time 12/30/2020 11:00 AM Provider Kalpana Brown MD Department [facility] ) Diet: Low Fiber (2 weeks) Diet Comment: Stay on low fiber diet for 2 weeks, then can resume normal diet Addtl Attending Provider Instructions: SPECIAL CARE INSTRUCTIONS: * Cover incisions and change daily for comfort/drainage. * May use ibuprofen for pain as tolerated. * Expect some swelling and bruising. Call your doctor if: * Temperature above 101 degrees * Pain not relieved by pain medicine ordered * There is increased drainage or redness from any incision * You have any unanswered questions or concerns [phone]. FOLLOW UP VISIT: If not already scheduled, please call the office for a follow-up visit. OFFICE PHONE NUMBER: Dr. Barrientos Office Addtl Second Vp Hr Assessment Provider Instructions: PLEASE TAKE PROBIOTICS ( OVER THE COUNTER ) WHILE TAKING ANTIBIOTICS TO PREVENT DIARRHEA /LOOSE STOOL Please take scheduled/daily bowel regimen, MiraLAX 2 tablespoonful in 8 ounces of beverage, daily Please follow-up with gastroenterology for colonoscopy Pending Studies at Discharge: Yes Studies:: surgical pathology Stand-Alone Forms: My [facility], Smoking Cessation Medications and DC Order Prescriptions: New amoxicillin-pot clavulanate [Augmentin] 875-125 mg tablet 1 tab PO BID 5 Days Qty: 10 RF: 0 Continued multivitamin [Daily Multi-Vitamin] Tablet 1 tab PO QAM RF: 0 venlafaxine [Effexor XR] 150 mg capsule,extended release 24hr 150 mg PO QAM RF: 0 bupropion HCl [Wellbutrin SR] 100 mg tablet sustained-release 12 hr 100 mg PO BID RF: 0 alprazolam [Xanax] 0.5 mg tablet 0.5 mg PO TID PRN (Reason: Anxiety) RF: 0 omeprazole 20 mg capsule,delayed release(DR/EC) 20 mg PO QAM RF: 0 zinc 50 mg Tablet 50 mg PO QAM RF: 0 cholecalciferol (vitamin D3) [Vitamin D3] 25 mcg (1,000 unit) Tablet 0 mcg PO QAM RF: 0 magnesium oxide 400 mg magnesium Tablet 400 mg PO QAM RF: 0 Myrbetriq 50 mg tablet extended release 24 hr 50 mg PO QAM RF: 0 Discharge Orders: Discharge Order (Routine); Ordered 12/26/20 Ordered By: Jo Ann Mccormick/Other Patient Handouts: Low-Fiber Diet, Anatomy of the Digestive System Admission Data Admit Date/Time: 12/23/20 18:45 Attending Provider: Jo Ann Galvez Admit Provider: Jo Ann Galvez Primary Care Provider: PCP,NO Other Providers: Jo Ann Galvez ; Bryan Campos ; Kumar Hickman ; Elza Clifford ; Jailyn Umana ; Francisco Patterson ; Ben Curtis ; Deonna Espinal ; Lesley Dodge ; Paul Anderson Jr ; Neymar Lerner ; Byron García ; Juanita Varela Other Interventions: Discharge Summary Assessment (RN) Last Done: 12/26/20 10:46
[2020-12-26] MEDS ORDERED: AMOXICILLIN/CLAVULANATE 875 MG TAB PO ONE (11:21)
== END 2020-12-26 12:00 | disposition home or self-care (01) | DRG 343 ==
LOC: ED 12:48 → 2N 18:45